=== PATIENT | female | born 1990 | race Caucasian/White ===

== ENCOUNTER → 2016-03-26 | Outpatient (CLI) | payer OTHER ==
[~2016-03-26] MED LIST: ACET50TA PO; BUPIVACAINE HCL 0.25% 30 ML VIAL As Ordered ONE; FISH500C PO; HEPA500020 IP; IBUP600T26 PO; IBUP80TA PO; ISOVUE-M 300 61% 15ML VIAL (Q9967) As Ordered ONE; LEVO137T2 PO; LIDOCAINE 1% SDV INJ 30 ML VIAL As Ordered ONE; LOVE1INJ SC; MOBI15TA PO; MULTCAP PO; PHEN15CA58 PO; ROBA750T4 PO; VITA500C24 PO; VITAPRTA PO; [UNRECOGNIZED DRUG - OTHER] PO; [UNRECOGNIZED DRUG - OTHER] PO; combination cream TOP; flexeril PO
--- NOTE | 2016-03-26 13:55 | REP ---
PARTIAL LUMBAR SPINE SERIES: Three views. HISTORY: Injection procedure facet block for pain. 25 seconds of fluoroscopy time is reported. FINDINGS: A sequence of three fluoroscopically obtained intraprocedural spot radiographs of the lumbar spine document various needle positions and contrast injections associated with lumbar facet injection procedure. Signed by Leighton Pearson MD 03/26/2016 07:27 P
--- NOTE | 2016-04-03 02:11 | ECWPNPC ---
PATIENT NAME: ERIN DESAI : 1990 GENDER: FEMALE VISIT DATE: 03/26/2016 DISCHARGE DATE: 03/26/16 1259 VISIT LOCKED DATE TIME: PHYSICIAN: CHANTAL PEARL RESOURCE: CHANTAL PEARL REASON FOR APPOINTMENT 1. LFBD HISTORY OF PRESENT ILLNESS HISTORY OF PRESENT ILLNESS: PAIN THE PATIENT DESCRIBES THE PAIN... FALL RISK SCREENING: SCREENING :ONE FALL WITH INJURY IN THE PAST YEAR CURRENT MEDICATIONS TAKING ASCORBIC ACID 500 MG TABLET CHEWABLE 1 TABLET ORALLY BID, NOTES: 03/26/16929 TAKING LEVOTHYROXINE SODIUM 200 MCG TABLET 1 TABLET INTRAVENOUS ONCE A DAY, NOTES: 03/26/16929 TAKING MULTIVITAMIN 1 TABLET CHEWABLE 1 TAB(S) ORALLY DAILY, NOTES: 03-26-16929 TAKING VITAMIN D (CHOLECALCIFEROL) 1000 UNIT TABLET 1 TABLET ORALLY ONCE A DAY, NOTES: 03-26-16929 TAKING MELATONIN 3 MG TABLET 1 TABLET AT BEDTIME NEEDED WITH FOOD ORALLY ONCE A DAY, NOTES: 03-25-162299 TAKING TIZANIDINE HCL 4 MG TABLET 1 TABLET NEEDED ORALLY BEFORE BEDTIME AND EVERY 6 HRS MDD2, NOTES: 03-25-162299 TAKING FISH OIL 1200 MG CAPSULE 1 CAPSULE ORALLY TWICE A DAY, NOTES: 03-26-16929 TAKING RIBOFLAVIN 25 MG TABLET 2 TABLETS ORALLY TWICE A DAY, NOTES: 03-26-16929 NOT-TAKING GABAPENTIN 100 MG CAPSULE 3 CAPSULE ORALLY BEFORE BEDTIME, NOTES: 01/04 12 MID NOT-TAKING NAPROXEN 375 MG TABLET 1 TABLET ORALLY DAILY NEEDED NOT-TAKING ACETAMINOPHEN 500 MG TABLET 1 TABLET NEEDED ORALLY EVERY 6 HRS NOT-TAKING COMBI RX 1 1 DOSE TOPICALLY EVERY 6 HOURS NEEDED NOT-TAKING IBUPROFEN 600 MG TABLET 1 TABLET ORALLY THREE TIMES A DAY NOT-TAKING METHOCARBAMOL 750 MG TABLET 1 TABLET ORALLY EVERY 4 HRS NOT-TAKING PHENTERMINE HCL 15 MG CAPSULE 1 CAPSULE ORALLY ONCE A DAY MEDICATION LIST REVIEWED AND RECONCILED WITH THE PATIENT PAST MEDICAL HISTORY HYPOTHYROID LOW BACK PAIN RIGHT HIP PAIN 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 NO . CHILLS NO . FEVER NO . INFECTION: DO YOU HAVE NEW INFECTIONS? NO . DO YOU HAVE HISTORY OF MRSA? NO . MUSCULOSKELETAL: ANY NEW PATTERNS OF PAIN OR NUMBNESS? NO . GASTROENTEROLOGY: ANY NEW CHANGE IN BOWEL CONTROL? NO . GENITOURINARY: ANY NEW CHANGE IN BLADDER CONTROL? NO . IS THERE A CHANCE YOU COULD BE ? NO . HEMATOLOGY/LYMPH: DO YOU TAKE ANY BLOOD THINNERS? (FOR EXAMPLE- COUMADIN, PLAVIX, AGGRENOX, PLATEL, PRADAXA, OR XARELTO) NO . WHEN WAS YOUR LAST DOSE? DATE: TIME: . NEUROLOGY: HAVE YOU FALLEN IN THE PAST 6 MONTHS? NO . ANY NEW EXTREMITY NUMBNESS OR WEAKNESS? NO . CARDIOLOGY: DO YOU HAVE A PACEMAKER OR DEFIBRILLATOR? NO . RESPIRATORY: HAVE YOU BEEN SICK IN THE PAST WEEK? NO . FEVER NO . FLU LIKE SYMPTOMS? NO . COUGH NO . INTEGUMENTARY: DO YOU HAVE ANY RASHES OR OPEN SORES? NO . ALLERGIC/IMMUNO: ARE YOU ALLERGIC TO SHELLFISH OR IV DYE? NO . ANY NEW ALLERGIES? NO . PSYCHIATRIC: DO YOU HAVE THOUGHTS OF HURTING YOURSELF OR SOMEONE ELSE? NO . ARE YOU ABUSED, NEGLECTED, OR IN AN UNSAFE ENVIRONMENT? NO . ENDOCRINOLOGY: ARE YOU DIABETIC? NO . OTHER: DO YOU NEED ANY PRESCRIPTIONS? NO . IF YES, PLEASE LIST: ____ . ANY NEW PROBLEMS WITH YOUR MEDICATIONS? NO . WHEN DID YOU LAST EAT? 2099 . WHEN DID YOU LAST DRINK? 0930 . WHAT DID YOU LAST DRINK? WATER . NAME OF PERSON DRIVING YOU HOME? GILBERT DESAI . DO YOU HAVE ANY OTHER QUESTIONS OR CONCERNS NO . REVIEWED BY: PROVIDER: . VITAL SIGNS WT 245 LBS, HT 69 IN, BMI 36.18 INDEX, BP 102/58 MM HG, HR 94 /MIN, RR 16 /MIN, TEMP 96.2 F, OXYGEN SAT % 96, NA INITIALS TL 1111. ASSESSMENTS SPONDYLOSIS WITHOUT MYELOPATHY OR RADICULOPATHY, LUMBAR REGION - M47.816 (PRIMARY) SPONDYLOSIS WITHOUT MYELOPATHY OR RADICULOPATHY, LUMBOSACRAL REGION - M47.817 PROCEDURES PN LUMBAR FACET BLOCK DIAGNOSTIC PRE PROCEDURE DIAGNOSIS LUMBAR SPONDYLOSIS, LUMBOSACRAL SPONDYLOSIS POST PROCEDURE DIAGNOSIS LUMBAR SPONDYLOSIS, LUMBOSACRAL SPONDYLOSIS PROCEDURE RIGHT L4-L5 AND RIGHT L5-S1 FACET BLOCK DIAGNOSTIC NUMBER [address] CHANTAL PEARL CARRY IN WORKER NONE ANESTHESIA LOCAL PRE PROCEDURE NOTE THE PATIENT WITH HISTORY OF CHRONIC LOW BACK PAIN. I EVALUATED THE PATIENT AND REVIEWED THE CHART. I WENT OVER THE RISKS, ALTERNATIVES, AND BENEFITS ASSOCIATED WITH THIS PROCEDURE. THE PATIENT WOULD LIKE TO PROCEED AND GAVE CONSENT TO PERFORM THE PROCEDURE. AGREED WITH THE PATIENT WE ARE DOING THIS PROCEDURE TO DETERMINE IF THE PATIENT IS A CANDIDATE FOR A RADIOFREQUENCY ABLATION OF THE FACETS JOINTS. THE PATIENT DENIES UNEXPLAINABLE WEIGHT LOSS, FEVER, CHILLS, OR NEW CHANGES IN URINARY OR BOWEL CONTROL DESCRIPTION OF PROCEDURE THE PATIENT WAS BROUGHT TO THE PROCEDURE ROOM AND PLACED IN THE PRONE POSITION. THE LUMBOSACRAL AREA WAS CLEANED WITH CHLORAPREP SOLUTION AND DRAPED ASEPTICALLY. THE PROCEDURE WAS DONE UNDER STERILE CONDITIONS. I CHECKED LATERALITY AND THE LEVEL WHERE THE PROCEDURE WAS GOING TO BE PERFORMED WITH THE PATIENT AND THE SUPPORTING STAFF AT THE MOMENT OF THE TIME OUT IN THE PROCEDURE ROOM. UNDER FLUOROSCOPIC GUIDANCE, TARGETS WERE SELECTED AT THE INTERSECTION OF THE RIGHT TRANSVERSE PROCESS OF L4, L5 AND ALA OF S1 WITH ITS RESPECTIVE SUPERIOR ARTICULAR PROCESS. LIDOCAINE WAS USED TO NUMB THE SKIN AND THE SUBCUTANEOUS TISSUE BELOW IT. SPINAL NEEDLE, 22-GAUGE WAS ADVANCED UNDER FLUOROSCOPIC GUIDANCE AND FOLLOWING PATIENT FEEDBACK UNTIL THE TARGETS WERE REACHED. POSITION OF THE NEEDLES WAS VERIFIED WITH AP AND LATERAL VIEWS. AFTER PROPER POSITION OF THE NEEDLES WAS ACHIEVED, ISOVUE-M DYE 30% 0.1 ML WAS INJECTED AT EACH SITE SHOWING ADEQUATE SPREAD OF THE DYE. THEN A SOLUTION OF 0.4 ML OF BUPIVACAINE 0.25% WAS INJECTED AT EACH SITE. THERE WAS NO EVIDENCE OF BLOOD, PARESTHESIA OR CEREBROSPINAL FLUID DURING THE PROCEDURE. THE PATIENT WAS SENT TO THE RECOVERY ROOM. THE PATIENT WAS MOVING THE EXTREMITIES AND DOING WELL. THERE WAS NO COMPLICATION DURING THE PROCEDURE. FLUOROSCOPY TIME WAS 25 SECONDS POST PROCEDURE NOTE THE PATIENT WILL DOCUMENT HIS PAIN LEVEL AND RESPONSE TO THIS PROCEDURE EVERY 30 MINUTES. THE PATIENT WILL BE SEEN IN A FOLLOW UP IN THE NEXT FEW WEEKS. FURTHER DETERMINATION FOR HIS CASE WILL BE DONE AT THE NEXT VISIT. INSTRUCTIONS WERE GIVEN, QUESTIONS WERE ANSWERED, AND THE PATIENT EXPRESSED UNDERSTANDING AND AGREED WITH THE PLAN. I, COLLIN MENDEZ, DOCUMENTED THE ABOVE INFORMATION ACTING A SCRIBE FOR DR. PEARL. I, DR. PEARL, HAVE REVIEWED THE ABOVE DOCUMENT, SCRIBED BY COLLIN MENDEZ, AND I VERIFY THAT IT IS ACCURATE DIAGNOSTIC IMAGING [facility] FACET BLOCK (PAIN)[id number] PROCEDURE CODES 22802 INJ PARAVERT F JNT L/S 1 LEV 52908 INJ PARAVERT F JNT L/S 2 LEV 6045F RADXPS IN END [id number] PXD FOLLOW UP 3 WEEKS ELECTRONICALLY SIGNED BY CHANTAL PEARL MD ON 04/02/2016 AT 02:26 PM EST DISCLAIMER : THIS IS A VISIT SUMMARY EXTRACTED FROM THE [employer] CHART. IT IS NOT A COPY OF THE [employer] PROGRESS NOTE. MTDD
== END ==
LOC: M PAIN 10:50
PROVIDERS: ATTEND Anesthesiology
DX: G89.29 Other chronic pain (principal); M47.816 Spondylosis without myelopathy or radiculopathy, lumbar region; M47.817 Spondylosis without myelopathy or radiculopathy, lumbosacral region; E03.9 Hypothyroidism, unspecified; Z87.820 Personal history of traumatic brain injury; H47.099 Other disorders of optic nerve, not elsewhere classified, unspecified eye; Z79.899 Other long term (current) drug therapy
CPT/HCPCS: 64493; 64494; Q9967

== ENCOUNTER → 2016-05-13 | Outpatient (CLI) | payer OTHER ==
[~2016-05-13] MED LIST changes: -BUPIVACAINE HCL 0.25% 30 ML VIAL As Ordered ONE; -ISOVUE-M 300 61% 15ML VIAL (Q9967) As Ordered ONE; -LIDOCAINE 1% SDV INJ 30 ML VIAL As Ordered ONE
--- NOTE | 2016-05-14 00:26 | ECWPNPC ---
PATIENT NAME: ERIN DESAI : 1990 GENDER: FEMALE VISIT DATE: 05/13/2016 DISCHARGE DATE: 05/13/16 1201 VISIT LOCKED DATE TIME: PHYSICIAN: REYNALDO PAREDES RESOURCE: REYNALDO PAREDES REASON FOR APPOINTMENT 1. POST FACET HISTORY OF PRESENT ILLNESS HISTORY OF PRESENT ILLNESS: HERE FOR POST PROC. F/U.HAD RIGHT DIAGNOSTIC FACET BLOCK #2 ON 03-26-16.PAIN DIARY IS REVIEWED AND SHOWING MARKED REDUCTION IN PAIN >75% FOR 4HRS THEN PAIN GRADUALLY RETURNED TO BASELINE ON DAY 3.PAIN VAS 7/10.LOCATED ACROSS LOW BACK WITH RADIATION INTO BILAT. LEGS R>L.AGGREVATED BY PROLONGED SITTING OR STANDING.RELIEVED SOMEWHAT WITH STRETCHING AND PILLOW POSITIONING.CURRENTLY USING TIZANIDINE AT NIGHT PRN FOR PAIN.TAKING GABAPENTIN 300MG AT HS. FALL RISK SCREENING: SCREENING :NO FALLS IN THE PAST YEAR CURRENT MEDICATIONS TAKING ASCORBIC ACID 500 MG TABLET CHEWABLE 1 TABLET ORALLY BID TAKING LEVOTHYROXINE SODIUM 200 MCG TABLET 1 TABLET INTRAVENOUS ONCE A DAY TAKING MULTIVITAMIN 1 TABLET CHEWABLE 1 TAB(S) ORALLY DAILY TAKING VITAMIN D (CHOLECALCIFEROL) 1000 UNIT TABLET 1 TABLET ORALLY ONCE A DAY TAKING MELATONIN 3 MG TABLET 1 TABLET AT BEDTIME NEEDED WITH FOOD ORALLY ONCE A DAY TAKING TIZANIDINE HCL 4 MG TABLET 1 TABLET NEEDED ORALLY BEFORE BEDTIME AND EVERY 6 HRS MDD2 TAKING FISH OIL 1200 MG CAPSULE 1 CAPSULE ORALLY TWICE A DAY TAKING RIBOFLAVIN 25 MG TABLET 2 TABLETS ORALLY TWICE A DAY TAKING GABAPENTIN 100 MG CAPSULE 3 CAPSULE ORALLY BEFORE BEDTIME NOT-TAKING NAPROXEN 375 MG TABLET 1 TABLET ORALLY DAILY NEEDED NOT-TAKING ACETAMINOPHEN 500 MG TABLET 1 TABLET NEEDED ORALLY EVERY 6 HRS NOT-TAKING COMBI RX 1 1 DOSE TOPICALLY EVERY 6 HOURS NEEDED NOT-TAKING IBUPROFEN 600 MG TABLET 1 TABLET ORALLY THREE TIMES A DAY NOT-TAKING METHOCARBAMOL 750 MG TABLET 1 TABLET ORALLY EVERY 4 HRS NOT-TAKING PHENTERMINE HCL 15 MG CAPSULE 1 CAPSULE ORALLY ONCE A DAY MEDICATION LIST REVIEWED AND RECONCILED WITH THE PATIENT PAST MEDICAL HISTORY HYPOTHYROID LOW BACK PAIN RIGHT HIP PAIN 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 NEW PATIENT PAIN DIARY TODAY'S VISITNOTES FROM 0-10, WHAT LEVEL IS YOUR PAIN TODAY?0 PAIN CLINIC PFS, CLERGY, PUBLIC HEALTH REFERRALS PFS REFERRAL NEEDED?NO CLERGY REFERRAL NEEDED?NO PUBLIC HEALTH REFERRAL NEEDED?NO WAS THE PROVIDER NOTIFIED OF ANY PERTINENT INFO?NO PFS REFERRAL NEEDED?NO CLERGY REFERRAL NEEDED?NO PUBLIC HEALTH REFERRAL NEEDED?NO WAS THE PROVIDER NOTIFIED OF ANY PERTINENT INFO?NO REVIEW OF SYSTEMS CONSTITUTIONAL: ANY CHANGE IN YOUR MEDICAL CONDITION? NO . CHILLS NO . FEVER NO . INFECTION: DO YOU HAVE NEW INFECTIONS? NO . DO YOU HAVE HISTORY OF MRSA? NO . MUSCULOSKELETAL: ANY NEW PATTERNS OF PAIN OR NUMBNESS? NO . GASTROENTEROLOGY: ANY NEW CHANGE IN BOWEL CONTROL? NO . GENITOURINARY: ANY NEW CHANGE IN BLADDER CONTROL? NO . IS THERE A CHANCE YOU COULD BE ? NO . HEMATOLOGY/LYMPH: DO YOU TAKE ANY BLOOD THINNERS? (FOR EXAMPLE- COUMADIN, PLAVIX, AGGRENOX, PLATEL, PRADAXA, OR XARELTO) NO . WHEN WAS YOUR LAST DOSE? DATE: TIME: . NEUROLOGY: HAVE YOU FALLEN IN THE PAST 6 MONTHS? NO . ANY NEW EXTREMITY NUMBNESS OR WEAKNESS? NO . CARDIOLOGY: DO YOU HAVE A PACEMAKER OR DEFIBRILLATOR? NO . RESPIRATORY: HAVE YOU BEEN SICK IN THE PAST WEEK? NO . FEVER NO . FLU LIKE SYMPTOMS? NO . COUGH NO . INTEGUMENTARY: DO YOU HAVE ANY RASHES OR OPEN SORES? NO . ALLERGIC/IMMUNO: ARE YOU ALLERGIC TO SHELLFISH OR IV DYE? NO . ANY NEW ALLERGIES? NO . PSYCHIATRIC: DO YOU HAVE THOUGHTS OF HURTING YOURSELF OR SOMEONE ELSE? NO . ARE YOU ABUSED, NEGLECTED, OR IN AN UNSAFE ENVIRONMENT? NO . ENDOCRINOLOGY: ARE YOU DIABETIC? NO . OTHER: DO YOU NEED ANY PRESCRIPTIONS? YES GABAPENTIN, TIZANIDINE . IF YES, PLEASE LIST: ____ . ANY NEW PROBLEMS WITH YOUR MEDICATIONS? NO . WHEN DID YOU LAST EAT? ____ . WHEN DID YOU LAST DRINK? ____ . WHAT DID YOU LAST DRINK? ____ . NAME OF PERSON DRIVING YOU HOME? ____ . DO YOU HAVE ANY OTHER QUESTIONS OR CONCERNS NO . REVIEWED BY: PROVIDER: REYNALDO SCHNEIDER . VITAL SIGNS WT 238.4 LBS, HT 69 IN, BMI 35.20 INDEX, BP 122/75 MM HG, HR 98 /MIN, RR 16 /MIN, TEMP 98.6 F, OXYGEN SAT % 95%, NA INITIALS SC 10:47. EXAMINATION LUMBAR SPINE/LOWER BACK: INSPECTION:NORMAL CURVATURE OF SPINE. PALPATION:HYPERSENSITIVE TO LIGHT TOUCH L/S SPINE AND PARASPINAL ., SEVERE. MOTOR SYSTEM:NORMAL BILATERAL LOWER EXTREMITIES, 5/5 BLE. SENSORY EXAM:NORMAL BILATERAL LE. REFLEXES:BILATERALLY SYMMETRICAL, BAB[place]KI NEGATIVE. GAIT:NORMAL. 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 TREATMENT RIGHT HIP PAIN REFILL TIZANIDINE HCL TABLET, 4 MG, 1 TABLET NEEDED, ORALLY, BEFORE BEDTIME AND EVERY 6 HRS MDD2, 30 DAY(S), 50, REFILLS 2 REFILL GABAPENTIN CAPSULE, 300 MG, 1, ORALLY, BEFORE BEDTIME, 30 DAY(S), 30, REFILLS 2 RF FACET LUMBAR REYNALDO GAN 05/13/2016 11:33:44 AM > RIGHT L4/5-L5/S1 RF PROCEDURE CODES FA211 ESTABILISHED PATIENT [facility] CHARGE DISPOSITION & COMMUNICATION FOLLOW UP 4 WEEKS POST (REASON: RF RIGHT L4/5-L5/S1) ELECTRONICALLY SIGNED BY WYATT HAQ ON 05/13/2016 AT 04:21 PM EST DISCLAIMER : THIS IS A VISIT SUMMARY EXTRACTED FROM THE [employer] CHART. IT IS NOT A COPY OF THE [employer] PROGRESS NOTE. CADEN
== END ==
LOC: M PAIN 10:20
PROVIDERS: ATTEND Nurse Practitioner Family
DX: Z09 Encounter for follow-up examination after completed treatment for conditions other than malignant neoplasm (principal); G89.29 Other chronic pain; M25.551 Pain in right hip; M51.16 Intervertebral disc disorders with radiculopathy, lumbar region; M51.17 Intervertebral disc disorders with radiculopathy, lumbosacral region; M47.816 Spondylosis without myelopathy or radiculopathy, lumbar region; M47.817 Spondylosis without myelopathy or radiculopathy, lumbosacral region; E03.9 Hypothyroidism, unspecified; Z79.899 Other long term (current) drug therapy; Z87.820 Personal history of traumatic brain injury

== ENCOUNTER → 2016-06-21 | Outpatient (CLI) | payer OTHER ==
[~2016-06-21] MED LIST changes: +BUPIVACAINE HCL 0.25% 30 ML VIAL As Ordered ONE; +ISOVUE-M 300 61% 15ML VIAL (Q9967) As Ordered ONE; +LIDOCAINE 1% SDV INJ 30 ML VIAL As Ordered ONE; +TRIAMCINOLONE ACETONIDE SUSP 40 MG/ML VIAL (J3301) As Ordered ONE; +diazePAM 5 MG TAB As Ordered ONE
--- NOTE | 2016-06-21 16:08 | REP ---
C-ARM VIEWS LUMBAR SPINE: CLINICAL HISTORY: Pain. Three C-ARM views are performed during injection by Dr. Parmar. [place] are seen in the lower lumbar region. 33 seconds of fluoroscopic time utilized. Signed by Satish Yost MD 06/22/2016 09:42 A
--- NOTE | 2016-06-27 23:42 | ECWPNPC ---
PATIENT NAME: ERIN DESAI : 1990 GENDER: FEMALE VISIT DATE: 06/21/2016 DISCHARGE DATE: 06/21/16 1308 VISIT LOCKED DATE TIME: PHYSICIAN: CHANTAL PEARL RESOURCE: CHANTAL PEARL REASON FOR APPOINTMENT 1. RF HISTORY OF PRESENT ILLNESS HISTORY OF PRESENT ILLNESS: PAIN THE PATIENT DESCRIBES THE PAIN... FALL RISK SCREENING: SCREENING :NO FALLS IN THE PAST YEAR CURRENT MEDICATIONS TAKING ASCORBIC ACID 500 MG TABLET CHEWABLE 1 TABLET ORALLY BID, NOTES: 06/21/16749 TAKING LEVOTHYROXINE SODIUM 200 MCG TABLET 1 TABLET INTRAVENOUS ONCE A DAY, NOTES: 06/21/16749 TAKING MULTIVITAMIN 1 TABLET CHEWABLE 1 TAB(S) ORALLY DAILY, NOTES: 06/20/162199 TAKING VITAMIN D (CHOLECALCIFEROL) 1000 UNIT TABLET 1 TABLET ORALLY ONCE A DAY, NOTES: 06/21/16749 TAKING MELATONIN 3 MG TABLET 1 TABLET AT BEDTIME NEEDED WITH FOOD ORALLY ONCE A DAY, NOTES: 06/20/162199 TAKING FISH OIL 1200 MG CAPSULE 1 CAPSULE ORALLY TWICE A DAY, NOTES: 06/21/16749 TAKING RIBOFLAVIN 25 MG TABLET 2 TABLETS ORALLY TWICE A DAY, NOTES: 06/21/16749 TAKING TIZANIDINE HCL 4 MG TABLET 1 TABLET NEEDED ORALLY BEFORE BEDTIME AND EVERY 6 HRS MDD2, NOTES: 06/20/162199 TAKING GABAPENTIN 300 MG CAPSULE 1 ORALLY BEFORE BEDTIME, NOTES: 06/20/162199 NOT-TAKING NAPROXEN 375 MG TABLET 1 TABLET ORALLY DAILY NEEDED NOT-TAKING ACETAMINOPHEN 500 MG TABLET 1 TABLET NEEDED ORALLY EVERY 6 HRS NOT-TAKING COMBI RX 1 1 DOSE TOPICALLY EVERY 6 HOURS NEEDED NOT-TAKING IBUPROFEN 600 MG TABLET 1 TABLET ORALLY THREE TIMES A DAY NOT-TAKING METHOCARBAMOL 750 MG TABLET 1 TABLET ORALLY EVERY 4 HRS NOT-TAKING PHENTERMINE HCL 15 MG CAPSULE 1 CAPSULE ORALLY ONCE A DAY MEDICATION LIST REVIEWED AND RECONCILED WITH THE PATIENT PAST MEDICAL HISTORY HYPOTHYROID LOW BACK PAIN RIGHT HIP PAIN 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 REVIEW OF SYSTEMS CONSTITUTIONAL: ANY CHANGE IN YOUR MEDICAL CONDITION? NO . CHILLS NO . FEVER NO . INFECTION: DO YOU HAVE NEW INFECTIONS? NO . DO YOU HAVE HISTORY OF MRSA? NO . MUSCULOSKELETAL: ANY NEW PATTERNS OF PAIN OR NUMBNESS? NO . GASTROENTEROLOGY: ANY NEW CHANGE IN BOWEL CONTROL? NO . GENITOURINARY: ANY NEW CHANGE IN BLADDER CONTROL? NO . IS THERE A CHANCE YOU COULD BE ? NO . HEMATOLOGY/LYMPH: DO YOU TAKE ANY BLOOD THINNERS? (FOR EXAMPLE- COUMADIN, PLAVIX, AGGRENOX, PLATEL, PRADAXA, OR XARELTO) NO . WHEN WAS YOUR LAST DOSE? DATE: TIME: . NEUROLOGY: HAVE YOU FALLEN IN THE PAST 6 MONTHS? NO . ANY NEW EXTREMITY NUMBNESS OR WEAKNESS? NO . CARDIOLOGY: DO YOU HAVE A PACEMAKER OR DEFIBRILLATOR? NO . RESPIRATORY: HAVE YOU BEEN SICK IN THE PAST WEEK? NO . FEVER NO . FLU LIKE SYMPTOMS? NO . COUGH NO . INTEGUMENTARY: DO YOU HAVE ANY RASHES OR OPEN SORES? NO . ALLERGIC/IMMUNO: ARE YOU ALLERGIC TO SHELLFISH OR IV DYE? NO . ANY NEW ALLERGIES? NO . PSYCHIATRIC: DO YOU HAVE THOUGHTS OF HURTING YOURSELF OR SOMEONE ELSE? NO . ARE YOU ABUSED, NEGLECTED, OR IN AN UNSAFE ENVIRONMENT? NO . ENDOCRINOLOGY: ARE YOU DIABETIC? NO . OTHER: DO YOU NEED ANY PRESCRIPTIONS? NO . IF YES, PLEASE LIST: ____ . ANY NEW PROBLEMS WITH YOUR MEDICATIONS? NO . WHEN DID YOU LAST EAT? ____06/20/16 1930 . WHEN DID YOU LAST DRINK? ____06/21/16 1000 . WHAT DID YOU LAST DRINK? ___H2O . NAME OF PERSON DRIVING YOU HOME? ____MOM- BRAULIO SOSA . DO YOU HAVE ANY OTHER QUESTIONS OR CONCERNS NO . REVIEWED BY: PROVIDER: . VITAL SIGNS WT 229.0 LBS, HT 69 IN, BMI 33.81 INDEX, BP 118/64 MM HG, HR 98 /MIN, RR 16 /MIN, TEMP 97.6 F, OXYGEN SAT % 96%, NA INITIALS TL 1059, REVIEWED BY: AD. ASSESSMENTS SPONDYLOSIS WITHOUT MYELOPATHY OR RADICULOPATHY, LUMBAR REGION - M47.816 (PRIMARY) SPONDYLOSIS WITHOUT MYELOPATHY OR RADICULOPATHY, LUMBOSACRAL REGION - M47.817 PROCEDURES PN RADIOFREQUENCY PRE PROCEDURE DIAGNOSES 1. LUMBAR SPONDYLOSIS. 2. LUMBOSACRAL SPONDYLOSIS POST PROCEDURE DIAGNOSES 1. LUMBAR SPONDYLOSIS. 2. LUMBOSACRAL SPONDYLOSIS PROCEDURE RIGHT L4-L5 AND RIGHT L5-S1 FACET RADIOFREQUENCY SURGEON DR. CHANTAL PEARL YEAST CULTURE DEVELOPER NONE ANESTHESIA LOCAL PRE PROCEDURE REPORT THE PATIENT HAS HISTORY OF CHRONIC LOW BACK PAIN. I EVALUATE THE PATIENT AND REVIEWED THE CHART. I WENT OVER THE RISKS, ALTERNATIVES, AND BENEFITS ASSOCIATED WITH THIS PROCEDURE. THE PATIENT WOULD LIKE TO PROCEED AND GIVE CONSENT TO PERFORMED THE PROCEDURE. THE PATIENT DENIES UNEXPLAINABLE WEIGHT LOSS, FEVER, CHILLS, OR NEW CHANGES IN URINARY OR BOWEL CONTROL DESCRIPTION OF PROCEDURE THE PATIENT WAS BROUGHT TO THE PROCEDURE ROOM AND PLACED IN THE PRONE POSITION. THE LUMBOSACRAL AREA WAS CLEANED WITH CHLORAPREP SOLUTION AND DRAPED ASEPTICALLY. THE PROCEDURE WAS DONE UNDER STERILE CONDITIONS. I CHECKED LATERALITY AND THE LEVEL WHERE THE PROCEDURE WAS GOING TO BE PERFORMED WITH THE PATIENT AND THE SUPPORTING STAFF AT THE MOMENT OF THE TIME OUT IN THE PROCEDURE ROOM. UNDER FLUOROSCOPIC GUIDANCE, TARGETS WERE SELECTED AT THE INTERSECTION OF THE RIGHT TRANSVERSE PROCESS OF L4, L5 AND ALA OF S1 WITH ITS RESPECTIVE SUPERIOR ARTICULAR PROCESS. LIDOCAINE WAS USED TO NUMB THE SKIN AND THE SUBCUTANEOUS TISSUE BELOW IT. RADIOFREQUENCY NEEDLES 22-GAUGE 15 CM LONG WITH 10 MM ACTIVE CURVE TIP WERE ADVANCED UNDER FLUOROSCOPIC GUIDANCE AND FOLLOWING PATIENT FEEDBACK UNTIL THE TARGET AREA WAS REACHED. POSITION OF THE NEEDLES WAS VERIFIED WITH AP AND LATERAL VIEWS. AFTER PROPER POSITION OF THE NEEDLE WAS ACHIEVED, WE WORKED WITH THE RIGHT SELECTED MEDIAN BRANCHES OF L3, L4 AND THE DORSAL RAMI OF L5. WE MEASURED THE CORRESPONDING IMPEDANCES, SENSORY STIMULATION AND MOTOR RESPONSES INDICATED IN THE RADIOFREQUENCY WORKSHEET. POSITION OF THE NEEDLES WAS VERIFIED AGAIN WITH AP AND LATERAL VIEWS. LIDOCAINE 1%, 2 ML, WAS INJECTED AT EACH LEVEL. RADIOFREQUENCY WAS DONE AT EACH LEVEL AT 80 DEGREES FOR 90 SECONDS. AFTER RADIOFREQUENCY WAS DONE, THE PATIENT RECEIVED BUPIVACAINE 0.125% 1 CC WITH KENALOG 5 MG AT EACH SITE. THERE WAS NO EVIDENCE OF BLOOD, PARESTHESIA OR CEREBROSPINAL FLUID DURING THE PROCEDURE. THE PATIENT WAS SENT TO THE RECOVERY ROOM. THE PATIENT WAS MOVING THE EXTREMITIES AND DOING WELL. THERE WAS NO COMPLICATION DURING THE PROCEDURE. FLUOROSCOPY TIME WAS 33 SECONDS POST PROCEDURE NOTE THE PATIENT WILL BE SEEN IN A FOLLOW UP IN THE NEXT FEW WEEKS. INSTRUCTIONS WERE GIVEN, QUESTIONS WERE ANSWERED, AND THE PATIENT EXPRESSED UNDERSTANDING AND AGREES WITH THE PLAN. I, CHAYO SAM, DOCUMENTED THE ABOVE INFORMATION ACTING A SCRIBE FOR DR. PEARL. I HAVE REVIEWED THE ABOVE DOCUMENT, WRITTEN BY CHAYO SAM SCRIBE AND I VERIFY THAT IT IS ACCURATE. DIAGNOSTIC IMAGING [facility] FACET BLOCK (PAIN)[id number] PROCEDURE CODES 72962 DESTROY LUMB/SAC FACET JNT 62938 DESTROY L/S FACET JNT ADDL 6045F RADXPS IN END [id number] PXD DISPOSITION & COMMUNICATION FOLLOW UP 3 WEEKS ELECTRONICALLY SIGNED BY CHANTAL PEARL MD ON 06/27/2016 AT 09:27 PM EDT DISCLAIMER : THIS IS A VISIT SUMMARY EXTRACTED FROM THE [facility] [employer] CHART. IT IS NOT A COPY OF THE [employer] PROGRESS NOTE. MTDD
== END ==
LOC: M PAIN 11:00
PROVIDERS: ATTEND Anesthesiology
DX: G89.29 Other chronic pain (principal); M47.816 Spondylosis without myelopathy or radiculopathy, lumbar region; M47.817 Spondylosis without myelopathy or radiculopathy, lumbosacral region; Z79.899 Other long term (current) drug therapy
CPT/HCPCS: 64635; 64636; J3301; Q9967

== ENCOUNTER → 2016-06-30 | Outpatient (CLI) | payer OTHER ==
[~2016-06-30] MED LIST changes: -BUPIVACAINE HCL 0.25% 30 ML VIAL As Ordered ONE; -ISOVUE-M 300 61% 15ML VIAL (Q9967) As Ordered ONE; -LIDOCAINE 1% SDV INJ 30 ML VIAL As Ordered ONE; -TRIAMCINOLONE ACETONIDE SUSP 40 MG/ML VIAL (J3301) As Ordered ONE; -diazePAM 5 MG TAB As Ordered ONE
--- NOTE | 2016-07-09 00:04 | ECWPNPC ---
PATIENT NAME: ERIN DESAI : 1990 GENDER: FEMALE VISIT DATE: 06/30/2016 DISCHARGE DATE: 06/30/16 1548 VISIT LOCKED DATE TIME: PHYSICIAN: REYNALDO PAREDES RESOURCE: REYNALDO PAREDES REASON FOR APPOINTMENT 1. POST RF HISTORY OF PRESENT ILLNESS GENERAL: HERE FOR POST PROCEDURE F/U.HAD RIGHT L4/5-L5/S1 RADIOFREQUENCY ON 06-21-2016.REPORTING SOME IN RIGHT LOW BACK PAIN.RATING PAIN VAS 6/10.DISCUSSED NORMAL COURSE OF RADIOFREQUENCY.SHE IS ONLY ONE WEEK POST PROCEDURE.FEELSHER PAIN IS MORE LOCATED RIGHT HIP. CURRENT MEDICATIONS TAKING ASCORBIC ACID 500 MG TABLET CHEWABLE 1 TABLET ORALLY BID TAKING LEVOTHYROXINE SODIUM 200 MCG TABLET 1 TABLET INTRAVENOUS ONCE A DAY TAKING MULTIVITAMIN 1 TABLET CHEWABLE 1 TAB(S) ORALLY DAILY TAKING VITAMIN D (CHOLECALCIFEROL) 1000 UNIT TABLET 1 TABLET ORALLY ONCE A DAY TAKING MELATONIN 3 MG TABLET 1 TABLET AT BEDTIME NEEDED WITH FOOD ORALLY ONCE A DAY TAKING FISH OIL 1200 MG CAPSULE 1 CAPSULE ORALLY TWICE A DAY TAKING RIBOFLAVIN 25 MG TABLET 2 TABLETS ORALLY TWICE A DAY TAKING TIZANIDINE HCL 4 MG TABLET 1 TABLET NEEDED ORALLY BEFORE BEDTIME AND EVERY 6 HRS MDD2 TAKING GABAPENTIN 300 MG CAPSULE 1 ORALLY BEFORE BEDTIME NOT-TAKING NAPROXEN 375 MG TABLET 1 TABLET ORALLY DAILY NEEDED NOT-TAKING ACETAMINOPHEN 500 MG TABLET 1 TABLET NEEDED ORALLY EVERY 6 HRS NOT-TAKING COMBI RX 1 1 DOSE TOPICALLY EVERY 6 HOURS NEEDED NOT-TAKING IBUPROFEN 600 MG TABLET 1 TABLET ORALLY THREE TIMES A DAY NOT-TAKING METHOCARBAMOL 750 MG TABLET 1 TABLET ORALLY EVERY 4 HRS NOT-TAKING PHENTERMINE HCL 15 MG CAPSULE 1 CAPSULE ORALLY ONCE A DAY MEDICATION LIST REVIEWED AND RECONCILED WITH THE PATIENT PAST MEDICAL HISTORY HYPOTHYROID LOW BACK PAIN RIGHT HIP PAIN TBI WITH OPTIC NERVE INJURY AND WHIPLASH ALLERGIES NONE SURGICAL HISTORY HERNIA REPAIR 1992 LEFT KNEE ACL/MANISCUS REPAIR 2006 WISDOM TEETH REMOVED 2008 HOSPITALIZATION/MAJOR DIAGNOSTIC PROCEDURE PULMONARY EMBOLISM BILATERAL LUNGS POST KNEE REPAIR 2006 OF DAUGHTER 2014 VITAL SIGNS WT 229 LBS, HT 69 IN, BMI 33.81 INDEX, BP 119/73 MM HG, HR 66 /MIN, RR 16 /MIN, TEMP 98.3 F, OXYGEN SAT % 94, NA INITIALS AW 1517. EXAMINATION LUMBAR SPINE/LOWER BACK: INSPECTION:NORMAL CURVATURE OF SPINE. PALPATION:HYPERSENSITIVE TO LIGHT TOUCH L/S SPINE AND PARASPINAL ., SEVERE. MOTOR SYSTEM:NORMAL BILATERAL LOWER EXTREMITIES, 5/5 BLE. SENSORY EXAM:NORMAL BILATERAL LE. REFLEXES:BILATERALLY SYMMETRICAL, BABINS[place] NEGATIVE. GAIT:NORMAL. 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 PROCEDURE CODES FA211 ESTABILISHED PATIENT [facility] CHARGE DISPOSITION & COMMUNICATION FOLLOW UP 4 WEEKS ELECTRONICALLY SIGNED BY WYATT HAQ ON 07/08/2016 AT 06:32 PM EDT DISCLAIMER : THIS IS A VISIT SUMMARY EXTRACTED FROM THE [employer] CHART. IT IS NOT A COPY OF THE [employer] PROGRESS NOTE. CADEN
== END ==
LOC: M PAIN 14:20
PROVIDERS: ATTEND Nurse Practitioner Family
DX: M25.551 Pain in right hip (principal); M54.41 Lumbago with sciatica, right side; Z79.899 Other long term (current) drug therapy; E03.9 Hypothyroidism, unspecified

== ENCOUNTER → 2016-07-29 | Outpatient (CLI) | payer OTHER ==
--- NOTE | 2016-07-30 00:43 | ECWPNPC ---
PATIENT NAME: ERIN DESAI : 1990 GENDER: FEMALE VISIT DATE: 07/29/2016 DISCHARGE DATE: 07/29/16 1046 VISIT LOCKED DATE TIME: PHYSICIAN: REYNALDO PAREDES RESOURCE: REYNALDO PAREDES REASON FOR APPOINTMENT 1. FOLLOWUP HISTORY OF PRESENT ILLNESS HISTORY OF PRESENT ILLNESS: PAIN THE PATIENT DESCRIBES THE PAIN... FALL RISK SCREENING: SCREENING :NO FALLS IN THE PAST YEAR GENERAL: HERE FOR F/U.HAD RIGHT L4/5-L5/S1 RADIOFREQUENCY ON 06-21-2016.REPORTING IMPROVEMENT IN RIGHT LOW BACK PAIN.REORTING IMPROVED ACTIVITY TOLERANCE.RATING PAIN VAS 6/10.DISCUSSED NORMAL COURSE OF RADIOFREQUENCY.SHE IS 4 WEEKS POST PROCEDURE. CURRENT MEDICATIONS TAKING ASCORBIC ACID 500 MG TABLET CHEWABLE 1 TABLET ORALLY BID TAKING LEVOTHYROXINE SODIUM 200 MCG TABLET 1 TABLET INTRAVENOUS ONCE A DAY TAKING MULTIVITAMIN 1 TABLET CHEWABLE 1 TAB(S) ORALLY DAILY TAKING VITAMIN D (CHOLECALCIFEROL) 1000 UNIT TABLET 1 TABLET ORALLY ONCE A DAY TAKING MELATONIN 3 MG TABLET 1 TABLET AT BEDTIME NEEDED WITH FOOD ORALLY ONCE A DAY TAKING FISH OIL 1200 MG CAPSULE 1 CAPSULE ORALLY TWICE A DAY TAKING RIBOFLAVIN 25 MG TABLET 2 TABLETS ORALLY TWICE A DAY TAKING TIZANIDINE HCL 4 MG TABLET 1 TABLET NEEDED ORALLY BEFORE BEDTIME AND EVERY 6 HRS MDD2 TAKING GABAPENTIN 300 MG CAPSULE 1 ORALLY BEFORE BEDTIME NOT-TAKING NAPROXEN 375 MG TABLET 1 TABLET ORALLY DAILY NEEDED NOT-TAKING ACETAMINOPHEN 500 MG TABLET 1 TABLET NEEDED ORALLY EVERY 6 HRS NOT-TAKING COMBI RX 1 1 DOSE TOPICALLY EVERY 6 HOURS NEEDED NOT-TAKING IBUPROFEN 600 MG TABLET 1 TABLET ORALLY THREE TIMES A DAY NOT-TAKING METHOCARBAMOL 750 MG TABLET 1 TABLET ORALLY EVERY 4 HRS NOT-TAKING PHENTERMINE HCL 15 MG CAPSULE 1 CAPSULE ORALLY ONCE A DAY MEDICATION LIST REVIEWED AND RECONCILED WITH THE PATIENT PAST MEDICAL HISTORY HYPOTHYROID LOW BACK PAIN RIGHT HIP PAIN TBI WITH OPTIC NERVE INJURY AND WHIPLASH ALLERGIES NONE REVIEW OF SYSTEMS CONSTITUTIONAL: ANY CHANGE IN YOUR MEDICAL CONDITION? NO . CHILLS NO . FEVER NO . INFECTION: DO YOU HAVE NEW INFECTIONS? NO . DO YOU HAVE HISTORY OF MRSA? NO . MUSCULOSKELETAL: ANY NEW PATTERNS OF PAIN OR NUMBNESS? NO . GASTROENTEROLOGY: ANY NEW CHANGE IN BOWEL CONTROL? NO . GENITOURINARY: ANY NEW CHANGE IN BLADDER CONTROL? NO . IS THERE A CHANCE YOU COULD BE ? NO . HEMATOLOGY/LYMPH: DO YOU TAKE ANY BLOOD THINNERS? (FOR EXAMPLE- COUMADIN, PLAVIX, AGGRENOX, PLATEL, PRADAXA, OR XARELTO) NO . WHEN WAS YOUR LAST DOSE? DATE: TIME: . NEUROLOGY: HAVE YOU FALLEN IN THE PAST 6 MONTHS? NO . ANY NEW EXTREMITY NUMBNESS OR WEAKNESS? NO . CARDIOLOGY: DO YOU HAVE A PACEMAKER OR DEFIBRILLATOR? NO . RESPIRATORY: HAVE YOU BEEN SICK IN THE PAST WEEK? NO . FEVER NO . FLU LIKE SYMPTOMS? NO . COUGH NO . INTEGUMENTARY: DO YOU HAVE ANY RASHES OR OPEN SORES? NO . ALLERGIC/IMMUNO: ARE YOU ALLERGIC TO SHELLFISH OR IV DYE? NO . ANY NEW ALLERGIES? NO . PSYCHIATRIC: DO YOU HAVE THOUGHTS OF HURTING YOURSELF OR SOMEONE ELSE? NO . ARE YOU ABUSED, NEGLECTED, OR IN AN UNSAFE ENVIRONMENT? NO . ENDOCRINOLOGY: ARE YOU DIABETIC? NO . OTHER: DO YOU NEED ANY PRESCRIPTIONS? NO . IF YES, PLEASE LIST: ____ . ANY NEW PROBLEMS WITH YOUR MEDICATIONS? NO . WHEN DID YOU LAST EAT? ____ . WHEN DID YOU LAST DRINK? ____ . WHAT DID YOU LAST DRINK? ____ . NAME OF PERSON DRIVING YOU HOME? ____ . DO YOU HAVE ANY OTHER QUESTIONS OR CONCERNS NO . REVIEWED BY: PROVIDER: REYNALOD SCHNEIDER . VITAL SIGNS WT 230 LBS, HT 69 IN, BMI 33.96 INDEX, BP 122/68 MM HG, HR 107 /MIN, RR 16 /MIN, TEMP 97.4 F, OXYGEN SAT % 97%, NA INITIALS SC 10:06, REVIEWED BY: ELLYN. EXAMINATION GENERAL EXAMINATION: GENERAL APPEARANCE:COMFORTABLE. PSYCHAFFECT NORMAL. LUNGS:LUNG RAHMAN ARE CLEAR TO AUSCULTATION BILATERALLY. GOOD MOVEMENT OF AIR. HEART:S1, S2 IN A REGULAR RATE AND RHYTHM. NO SIGNIFICANT MURMURS, RUBS OR GALLOPS NOTED. LUMBAR SPINE/LOWER BACK: LOWER BACK:THERE IS TENDERNESS AT LOWER BACK AND THE PARA SPINAL MUSCLE GROUP. MOTOR SYSTEM:5/5 BLE. SENSORY EXAM:NORMAL BILATERAL LE. REFLEXES:2/4 AND SYMMETRIC BLE. 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 THEY WERE ADVISED THAT THIS WILL IMPROVE WEIGHT LOSS AND ALSO DEPRESSION/FIBROMYALGIA SYMPTOMS. ADVISED TO WALK 10 MINUTES EVERY OTHER DAY ON A FLAT SURFACE. EMPHASIZED THE IMPORTANCE OF DOING THIS CONSISTANTLY AND NOT SPORATICALLY TO AVOID INJURY. STRONG ADVISED NOT TO DO MORE THAN 10 MINUTES EVERY OTHER DSY FOR THE FIRST 4 WEEKS. PROCEDURE CODES FA211 ESTABILISHED PATIENT [facility] CHARGE DISPOSITION & COMMUNICATION FOLLOW UP 2 MONTHS ELECTRONICALLY SIGNED BY WYATT HAQ ON 07/29/2016 AT 02:06 PM EDT DISCLAIMER : THIS IS A VISIT SUMMARY EXTRACTED FROM THE [employer] CHART. IT IS NOT A COPY OF THE [employer] PROGRESS NOTE. CADEN
== END ==
LOC: M PAIN 10:00
PROVIDERS: ATTEND Nurse Practitioner Family
DX: G89.29 Other chronic pain (principal); M25.551 Pain in right hip; M54.41 Lumbago with sciatica, right side; E03.9 Hypothyroidism, unspecified; Z79.899 Other long term (current) drug therapy; Z87.820 Personal history of traumatic brain injury

== ENCOUNTER → 2016-09-28 | Outpatient (CLI) | payer OTHER ==
[~2016-09-28] MED LIST changes: +ACET50TAOT PO; +ELIQ5TAB PO; +FISH1000 PO; +GABA-282; +GABA-282 PO; +IBUP-1022 PO; -IBUP600T26 PO; +IBUPOTC PO; +LEVO200T31 PO; +MELA3TAB49 PO; +MELA5TAB21 PO; +NORCOTAB PO; +PANT40TA2; +PANT40TA2 PO; +PHEN15CA PO; -PHEN15CA58 PO; +POTA99TA PO; +TIZA4CAP3 PO; +TYLE325T5 PO; +VITA100T98 PO; +VITMTA PO
--- NOTE | 2016-10-14 01:14 | ECWPNPC ---
PATIENT NAME: ERIN DESAI : 1990 GENDER: FEMALE VISIT DATE: 09/28/2016 DISCHARGE DATE: 09/28/16 1119 VISIT LOCKED DATE TIME: PHYSICIAN: REYNALDO PAREDES RESOURCE: REYNALDO PAREDES REASON FOR APPOINTMENT 1. LOW BACK/R HIP HISTORY OF PRESENT ILLNESS HISTORY OF PRESENT ILLNESS: PAIN THE PATIENT DESCRIBES THE PAIN... FALL RISK SCREENING: SCREENING :NO FALLS IN THE PAST YEAR GENERAL: HERE FOR F/U.HAD RIGHT L4/5-L5/S1 RADIOFREQUENCY ON 06-21-2016.REPORTING NO IMPROVEMENT IN RIGHT LOW BACK PAIN SINCE PROCEDURE.RATING PAIN VAS 7/10.PAIN IS ACROSS LOW BACK AND RADIATES INTO BOTH LEGS.CHIEF AREA OF PAIN IS RIGHT HIP.HAS RESPONDED WELL TO TROCHANTERIC BURSAL INJECTION. CURRENT MEDICATIONS TAKING LEVOTHYROXINE SODIUM 200 MCG TABLET 1 TABLET INTRAVENOUS ONCE A DAY TAKING MULTIVITAMIN 1 TABLET CHEWABLE 1 TAB(S) ORALLY DAILY TAKING VITAMIN D (CHOLECALCIFEROL) 1000 UNIT TABLET 1 TABLET ORALLY ONCE A DAY TAKING MELATONIN 3 MG TABLET 1 TABLET AT BEDTIME NEEDED WITH FOOD ORALLY ONCE A DAY TAKING FISH OIL 1200 MG CAPSULE 1 CAPSULE ORALLY TWICE A DAY TAKING RIBOFLAVIN 25 MG TABLET 2 TABLETS ORALLY TWICE A DAY TAKING TIZANIDINE HCL 4 MG TABLET 1 TABLET NEEDED ORALLY BEFORE BEDTIME AND EVERY 6 HRS MDD2 TAKING GABAPENTIN 300 MG CAPSULE 1 ORALLY BEFORE BEDTIME TAKING PROTONIX 40 MG TABLET DELAYED RELEASE 1 TABLET ORALLY ONCE A DAY TAKING TRAMADOL HCL 50 MG TABLET 1 TAB ORALLY EVERY 6 HOURS NEEDED/MMD#4 TAKING POTASSIUM CHLORIDE 10 MEQ CAPSULE EXTENDED RELEASE 1 CAPSULE WITH FOOD ORALLY TWICE A DAY NOT-TAKING ASCORBIC ACID 500 MG TABLET CHEWABLE 1 TABLET ORALLY BID NOT-TAKING NAPROXEN 375 MG TABLET 1 TABLET ORALLY DAILY NEEDED NOT-TAKING ACETAMINOPHEN 500 MG TABLET 1 TABLET NEEDED ORALLY EVERY 6 HRS NOT-TAKING COMBI RX 1 1 DOSE TOPICALLY EVERY 6 HOURS NEEDED NOT-TAKING IBUPROFEN 600 MG TABLET 1 TABLET ORALLY THREE TIMES A DAY NOT-TAKING METHOCARBAMOL 750 MG TABLET 1 TABLET ORALLY EVERY 4 HRS NOT-TAKING PHENTERMINE HCL 15 MG CAPSULE 1 CAPSULE ORALLY ONCE A DAY MEDICATION LIST REVIEWED AND RECONCILED WITH THE PATIENT PAST MEDICAL HISTORY HYPOTHYROID LOW BACK PAIN RIGHT HIP PAIN TBI WITH OPTIC NERVE INJURY AND WHIPLASH ALLERGIES NONE SURGICAL HISTORY HERNIA REPAIR 1991 LEFT KNEE ACL/MANISCUS REPAIR 2007 WISDOM TEETH REMOVED 2009 HOSPITALIZATION/MAJOR DIAGNOSTIC PROCEDURE PULMONARY EMBOLISM BILATERAL LUNGS POST KNEE REPAIR 2007 OF DAUGHTER 2015 REVIEW OF SYSTEMS REVIEWED BY: PROVIDER: REYNALDO SCHNEIDER . CONSTITUTIONAL: ANY CHANGE IN YOUR MEDICAL CONDITION? NO . CHILLS NO . FEVER NO . INFECTION: DO YOU HAVE NEW INFECTIONS? NO . DO YOU HAVE HISTORY OF MRSA? NO . MUSCULOSKELETAL: ANY NEW PATTERNS OF PAIN OR NUMBNESS? NO . GASTROENTEROLOGY: ANY NEW CHANGE IN BOWEL CONTROL? NO . GENITOURINARY: ANY NEW CHANGE IN BLADDER CONTROL? NO . IS THERE A CHANCE YOU COULD BE ? NO . HEMATOLOGY/LYMPH: DO YOU TAKE ANY BLOOD THINNERS? (FOR EXAMPLE- COUMADIN, PLAVIX, AGGRENOX, PLATEL, PRADAXA, OR XARELTO) NO . WHEN WAS YOUR LAST DOSE? DATE: TIME: . NEUROLOGY: HAVE YOU FALLEN IN THE PAST 6 MONTHS? NO . ANY NEW EXTREMITY NUMBNESS OR WEAKNESS? NO . CARDIOLOGY: DO YOU HAVE A PACEMAKER OR DEFIBRILLATOR? NO . RESPIRATORY: HAVE YOU BEEN SICK IN THE PAST WEEK? NO . FEVER NO . FLU LIKE SYMPTOMS? NO . COUGH NO . INTEGUMENTARY: DO YOU HAVE ANY RASHES OR OPEN SORES? NO . ALLERGIC/IMMUNO: ARE YOU ALLERGIC TO SHELLFISH OR IV DYE? NO . ANY NEW ALLERGIES? NO . PSYCHIATRIC: DO YOU HAVE THOUGHTS OF HURTING YOURSELF OR SOMEONE ELSE? NO . ARE YOU ABUSED, NEGLECTED, OR IN AN UNSAFE ENVIRONMENT? NO . ENDOCRINOLOGY: ARE YOU DIABETIC? NO . OTHER: DO YOU NEED ANY PRESCRIPTIONS? YES, GABAPENTIN, TIZANIDINE . IF YES, PLEASE LIST: ____ . ANY NEW PROBLEMS WITH YOUR MEDICATIONS? NO . WHEN DID YOU LAST EAT? ____ . WHEN DID YOU LAST DRINK? ____ . WHAT DID YOU LAST DRINK? ____ . NAME OF PERSON DRIVING YOU HOME? ____ . DO YOU HAVE ANY OTHER QUESTIONS OR CONCERNS NO . VITAL SIGNS WT 248.4 LBS, HT 69 IN, BMI 36.68 INDEX, BP 131/67 MM HG, HR 81 /MIN, RR 16 /MIN, TEMP 98.2 F, OXYGEN SAT % 98%, SAFE IN ENV? (Y/N) Y, NA INITIALS MO 10:53, REVIEWED BY: EM. EXAMINATION GENERAL EXAMINATION: GENERAL APPEARANCE:COMFORTABLE. PSYCHAFFECT NORMAL. LUNGS:LUNG RAHMAN ARE CLEAR TO AUSCULTATION BILATERALLY. GOOD MOVEMENT OF AIR. HEART:S1, S2 IN A REGULAR RATE AND RHYTHM. NO SIGNIFICANT MURMURS, RUBS OR GALLOPS NOTED. LUMBAR SPINE/LOWER BACK: LOWER BACK:THERE IS TENDERNESS AT LOWER BACK AND THE PARA SPINAL MUSCLE GROUP.TENDERNESS WITH PALPATION OVER RIGHT HIP.. MOTOR SYSTEM:5/5 BLE. SENSORY EXAM:NORMAL BILATERAL LE. REFLEXES:2/4 AND SYMMETRIC BLE. 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 PROCEDURE CODES FA211 ESTABILISHED PATIENT [facility] CHARGE DISPOSITION & COMMUNICATION FOLLOW UP 2WK POST (REASON: RIGHT TROCHANTERIC BURSAL STEROID INJECTION) ELECTRONICALLY SIGNED BY WYATT HAQ ON 10/13/2016 AT 09:31 AM EDT DISCLAIMER : THIS IS A VISIT SUMMARY EXTRACTED FROM THE [employer] CHART. IT IS NOT A COPY OF THE [employer] PROGRESS NOTE. CADEN
== END ==
LOC: M PAIN 10:00
PROVIDERS: ATTEND Nurse Practitioner Family
DX: M25.551 Pain in right hip (principal); M54.41 Lumbago with sciatica, right side; G89.29 Other chronic pain; Z79.891 Long term (current) use of opiate analgesic; Z79.899 Other long term (current) drug therapy; E03.9 Hypothyroidism, unspecified

== ENCOUNTER → 2016-10-21 | Outpatient (CLI) | payer OTHER ==
[~2016-10-21] MED LIST changes: +BUPIVACAINE HCL 0.25% 30 ML VIAL As Ordered ONE; +ISOVUE-M 300 61% 15ML VIAL (Q9967) As Ordered ONE; +LIDOCAINE 1% SDV INJ 30 ML VIAL As Ordered ONE; +TRIAMCINOLONE ACETONIDE SUSP 40 MG/ML VIAL (J3301) As Ordered ONE; +diazePAM 5 MG TAB As Ordered ONE; +oxyCODONE 5MG TAB As Ordered ONE
--- NOTE | 2016-10-21 17:49 | REP ---
FLUOROSCOPIC GUIDANCE: The images were reviewed with Dr. Michael. The patient has a history of right hip pain. The portable C-Arm was provided in the OR for Dr. Parmar for fluoroscopic guidance. Seven intraoperative fluoroscopic spot films were obtained using last image hold technology for needle placement verification for right trochanteric bursa injection. The films are on the PACs system and are available for review. 20 seconds of fluoroscopy time was utilized for this procedure. Reviewed by HELENE Chavez 10/22/2016 03:25 PEdited and Signed by Kris Michael MD 10/22/2016 10:08 P
--- NOTE | 2016-11-08 00:20 | ECWPNPC ---
PATIENT NAME: ERIN DESAI : 1990 GENDER: FEMALE VISIT DATE: 10/21/2016 DISCHARGE DATE: 10/21/16 1122 VISIT LOCKED DATE TIME: PHYSICIAN: CHANTAL PEARL RESOURCE: CHANTAL PEARL REASON FOR APPOINTMENT 1. RT. TROCHANTERIC BURSA HISTORY OF PRESENT ILLNESS HISTORY OF PRESENT ILLNESS: PAIN THE PATIENT DESCRIBES THE PAIN... FALL RISK SCREENING: SCREENING :NO FALLS IN THE PAST YEAR CURRENT MEDICATIONS TAKING LEVOTHYROXINE SODIUM 200 MCG TABLET 1 TABLET INTRAVENOUS ONCE A DAY, NOTES: 10/21 709 TAKING MULTIVITAMIN 1 TABLET CHEWABLE 1 TAB(S) ORALLY DAILY, NOTES: 10/20 2129 TAKING VITAMIN D (CHOLECALCIFEROL) 1000 UNIT TABLET 1 TABLET ORALLY ONCE A DAY, NOTES: NONE RECENT TAKING MELATONIN 3 MG TABLET 1 TABLET AT BEDTIME NEEDED WITH FOOD ORALLY ONCE A DAY, NOTES: 10/20 2129 TAKING FISH OIL 1200 MG CAPSULE 1 CAPSULE ORALLY TWICE A DAY, NOTES: 10/21 709 TAKING RIBOFLAVIN 25 MG TABLET 2 TABLETS ORALLY TWICE A DAY, NOTES: 10/21 709 TAKING PROTONIX 40 MG TABLET DELAYED RELEASE 1 TABLET ORALLY ONCE A DAY, NOTES: 10/21 709 TAKING TRAMADOL HCL 50 MG TABLET 1 TAB ORALLY EVERY 6 HOURS NEEDED/MMD#4, NOTES: NONE RECENT TAKING POTASSIUM CHLORIDE 10 MEQ CAPSULE EXTENDED RELEASE 1 CAPSULE WITH FOOD ORALLY TWICE A DAY, NOTES: 10/21 709 TAKING TIZANIDINE HCL 4 MG TABLET 1 TABLET NEEDED ORALLY BEFORE BEDTIME AND EVERY 6 HRS MDD2, NOTES: 10/20 2129 TAKING GABAPENTIN 300 MG CAPSULE 1 ORALLY BEFORE BEDTIME, NOTES: 10/20 2129 NOT-TAKING ASCORBIC ACID 500 MG TABLET CHEWABLE 1 TABLET ORALLY BID NOT-TAKING NAPROXEN 375 MG TABLET 1 TABLET ORALLY DAILY NEEDED NOT-TAKING ACETAMINOPHEN 500 MG TABLET 1 TABLET NEEDED ORALLY EVERY 6 HRS NOT-TAKING COMBI RX 1 1 DOSE TOPICALLY EVERY 6 HOURS NEEDED NOT-TAKING IBUPROFEN 600 MG TABLET 1 TABLET ORALLY THREE TIMES A DAY NOT-TAKING METHOCARBAMOL 750 MG TABLET 1 TABLET ORALLY EVERY 4 HRS NOT-TAKING PHENTERMINE HCL 15 MG CAPSULE 1 CAPSULE ORALLY ONCE A DAY MEDICATION LIST REVIEWED AND RECONCILED WITH THE PATIENT PAST MEDICAL HISTORY HYPOTHYROID LOW BACK PAIN RIGHT HIP PAIN 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 CONSTITUTIONAL: ANY CHANGE IN YOUR MEDICAL CONDITION? NO . CHILLS NO . FEVER NO . INFECTION: DO YOU HAVE NEW INFECTIONS? NO . DO YOU HAVE HISTORY OF MRSA? NO . MUSCULOSKELETAL: ANY NEW PATTERNS OF PAIN OR NUMBNESS? NO . GASTROENTEROLOGY: ANY NEW CHANGE IN BOWEL CONTROL? NO . GENITOURINARY: ANY NEW CHANGE IN BLADDER CONTROL? NO . IS THERE A CHANCE YOU COULD BE ? NO . HEMATOLOGY/LYMPH: DO YOU TAKE ANY BLOOD THINNERS? (FOR EXAMPLE- COUMADIN, PLAVIX, AGGRENOX, PLATEL, PRADAXA, OR XARELTO) NO . WHEN WAS YOUR LAST DOSE? DATE: TIME: . NEUROLOGY: HAVE YOU FALLEN IN THE PAST 6 MONTHS? NO . ANY NEW EXTREMITY NUMBNESS OR WEAKNESS? NO . CARDIOLOGY: DO YOU HAVE A PACEMAKER OR DEFIBRILLATOR? NO . RESPIRATORY: HAVE YOU BEEN SICK IN THE PAST WEEK? NO . FEVER NO . FLU LIKE SYMPTOMS? NO . COUGH NO . INTEGUMENTARY: DO YOU HAVE ANY RASHES OR OPEN SORES? NO . ALLERGIC/IMMUNO: ARE YOU ALLERGIC TO SHELLFISH OR IV DYE? NO . ANY NEW ALLERGIES? NO . PSYCHIATRIC: DO YOU HAVE THOUGHTS OF HURTING YOURSELF OR SOMEONE ELSE? NO . ARE YOU ABUSED, NEGLECTED, OR IN AN UNSAFE ENVIRONMENT? NO . ENDOCRINOLOGY: ARE YOU DIABETIC? NO . OTHER: DO YOU NEED ANY PRESCRIPTIONS? NO . IF YES, PLEASE LIST: ____ . ANY NEW PROBLEMS WITH YOUR MEDICATIONS? NO . WHEN DID YOU LAST EAT? 1946 . WHEN DID YOU LAST DRINK? 709 . WHAT DID YOU LAST DRINK? WATER . NAME OF PERSON DRIVING YOU HOME? GILBERT () . DO YOU HAVE ANY OTHER QUESTIONS OR CONCERNS NO . VITAL SIGNS WT 248.4 LBS, HT 69 IN, BMI 36.68 INDEX, BP 110/58 MM HG, HR 80 /MIN, RR 16 /MIN, TEMP 96.9 F, OXYGEN SAT % 96, SAFE IN ENV? (Y/N) YES, NA INITIALS MP 9:17, REVIEWED BY: BRAIN. ASSESSMENTS TROCHANTERIC BURSITIS, RIGHT HIP - M70.61 (PRIMARY) TREATMENT OTHERS NOTES: PREPROCEDURE DIAGNOSIS: BURSITIS AT THE RIGHT GREATER TROCHANTER OF THE FEMUR. POSTPROCEDURE DIAGNOSIS: BURSITIS AT THE RIGHT GREATER TROCHANTER OF THE FEMUR. PROCEDURE: INJECTION AT THE BURSA OF THE OF THE RIGHT GREATER TROCHANTER OF THE FEMUR UNDER FLUOROSCOPIC GUIDANCE. SURGEON: DR. CHANTAL PEARL STEAM FRAME OPERATOR: NONEANESTHESIA: LOCAL. PREOPERATIVE NOTE: THE PATIENT HAS A HISTORY OF RIGHT HIP PAIN. I EVALUATED THE PATIENT AND REVIEWED THE CHART. WE BOTH AGREE ON INJECTING OVER THE BURSA OF THE RIGHT GREATER TROCHANTER OF THE FEMUR. I WENT THROUGH THE RISKS, ALTERNATIVES, AND BENEFITS ASSOCIATED WITH THIS PROCEDURE. THE PATIENT WOULD LIKE TO PROCEED AND GIVE CONSENT TO PERFORMED THE PROCEDURE. THE PATIENT DENIES UNEXPLAINABLE WEIGHT LOSS, FEVERS, CHILLS, OR CHANGES IN HIS URINARY OR BOWEL CONTROL. DESCRIPTION OF PROCEDURE: AFTER CONSENT WAS TAKEN, THE PATIENT WAS BROUGHT TO THE PROCEDURE ROOM AND PLACED IN THE LEFT LATERAL DECUBITUS POSITION. THE RIGHT HIP AREA WAS CLEANED WITH CHLORAPREP SOLUTION AND DRAPED ASEPTICALLY. THE PROCEDURE WAS DONE UNDER STERILE CONDITIONS. I CHECKED LATERALITY WITH THE PATIENT AND THE STAFF IN THE PROCEDURE ROOM AT THE MOMENT OF THE TIME OUT. UNDER FLUOROSCOPIC GUIDANCE, TARGET WAS SELECTED AT THE [DEFAULT VALUE] GREATER TROCHANTER OF THE FEMUR. LIDOCAINE WAS USED TO NUMB THE SKIN AND THE SUBCUTANEOUS TISSUE BELOW IT. SPINAL NEEDLE, 22-GAUGE WAS ADVANCED UNDER FLUOROSCOPIC GUIDANCE AND FOLLOWING PATIENT FEEDBACK UNTIL THE TARGET WAS TOUCHED. POSITION OF THE NEEDLE WAS VERIFIED WITH AP AND LATERAL VIEWS. AFTER PROPER POSITION OF THE NEEDLE WAS ACHIEVED, ISOVUE M DYE, 30%, 0.25 ML WAS INJECTED SHOWING ADEQUATE SPREAD OF THE DYE. THEN A SOLUTION OF 20 ML OF BUPIVACAINE 0.25% AND KENALOG 40 MG WAS INJECTED. THERE WAS NO EVIDENCE OF BLOOD, PARESTHESIA, OR CEREBROSPINAL FLUID. THE PATIENT WAS SENT TO THE RECOVERY ROOM. THE PATIENT WAS MOVING THE EXTREMITIES AND DOING WELL. THERE WERE NO COMPLICATIONS DURING THE PROCEDURE. FLUOROSCOPY TIME 20 SECONDS.POSTOPERATIVE NOTE: I DISCUSSED ALTERNATIVES WITH THE PATIENT. WE WILL SEE THE PATIENT BACK IN SEVERAL WEEKS FOR REEVALUATION OF THE CASE. I AM LOOKING FOR LONG-LASTING PAIN RELIEF WITH THIS INTERVENTION. FLUOROSCOPIC TIME WAS 20 SECONDS. FURTHER RECOMMENDATIONS WILL BE DONE DEPENDING ON HOW THE PATIENT DOES. THERE WERE NO COMPLICATIONS.I, COLLIN MENDEZ, DOCUMENTED THE ABOVE INFORMATION ACTING A SCRIBE FOR DR. PEARL. I HAVE REVIEWED THE ABOVE DOCUMENT, WRITTEN BY COLLIN SAUER AND I VERIFY THAT IT IS ACCURATE. DIAGNOSTIC IMAGING [facility] FLUORO GUIDANCE (PAIN)[id number] PROCEDURE CODES 83715 DRAIN/INJ JOINT/BURSA W/O US 6045F RADXPS IN END [id number] PXD [id number] NEEDLE LOCALIZATION BY XRAY DISPOSITION & COMMUNICATION FOLLOW UP 3 WEEKS ELECTRONICALLY SIGNED BY CHANTAL PEARL MD ON 11/07/2016 AT 12:33 PM EDT DISCLAIMER : THIS IS A VISIT SUMMARY EXTRACTED FROM THE [employer] CHART. IT IS NOT A COPY OF THE [employer] PROGRESS NOTE. MTDD
== END ==
LOC: M PAIN 09:00
PROVIDERS: ATTEND Anesthesiology
DX: G89.29 Other chronic pain (principal); M70.61 Trochanteric bursitis, right hip; Z79.899 Other long term (current) drug therapy; Z79.891 Long term (current) use of opiate analgesic
CPT/HCPCS: 20610; 77002; J3301; Q9967

== ENCOUNTER 2016-10-28 11:32 | Day surgery (SDC) | payer OTHER ==
[~2016-10-28] VITALS: Ht 172.7 cm; Wt 109.0 kg
[~2016-10-28 11:32] MED LIST changes: -ACET50TAOT PO; -BUPIVACAINE HCL 0.25% 30 ML VIAL As Ordered ONE; -ELIQ5TAB PO; -FISH1000 PO; -GABA-282; -GABA-282 PO; -IBUPOTC PO; -ISOVUE-M 300 61% 15ML VIAL (Q9967) As Ordered ONE; -LEVO200T31 PO; -LIDOCAINE 1% SDV INJ 30 ML VIAL As Ordered ONE; -MELA3TAB49 PO; -MELA5TAB21 PO; -NORCOTAB PO; -PANT40TA2; -PANT40TA2 PO; -POTA99TA PO; -TIZA4CAP3 PO; -TRIAMCINOLONE ACETONIDE SUSP 40 MG/ML VIAL (J3301) As Ordered ONE; -TYLE325T5 PO; -VITA100T98 PO; -VITMTA PO; -diazePAM 5 MG TAB As Ordered ONE; -oxyCODONE 5MG TAB As Ordered ONE
[2016-10-28] MEDS ORDERED: PANT40TA2 (11:44)
[2016-10-28] MEDS ORDERED: GABA-282 (11:44)
[2016-10-28] MEDS ORDERED: ONDANSETRON 4MG/2ML VIAL (J2405) IV ONE (12:00)
[2016-10-28] MEDS ORDERED: KETOROLAC 30 MG/ML VIAL (J1885) IV ONE (12:00)
[2016-10-28] MEDS ORDERED: ONDANSETRON 4MG/2ML VIAL (J2405) As Ordered ONE ×2 (12:06→21:41)
[2016-10-28] MEDS ORDERED: KETOROLAC 30 MG/ML VIAL (J1885) As Ordered ONE (12:06)
[2016-10-28] MEDS ORDERED: NS 1,000 ML IV ONE (12:15)
[2016-10-28 12:33] LABS: BASO % 0.3 % (0.0-1.0); EOS # 0.2 K/mm3 (0.0-0.50); EOS % 1.6 % (0.0-3.0); LARGE UNSTAINED CELL # 0.1 K/mm3 (0.0-0.4); LARGE UNSTAINED CELL % 0.8 % (0.0-4.0); LYMPH # 1.3 K/mm3 (1.5-6.5); LYMPH % 8.9 % (24.0-44.0); MEAN CORPUSCULAR HEMOGLOBIN 31.1 pg (27.0-33.0); MEAN CORPUSCULAR HGB CONC 33.5 g/dl (32.0-36.5); MEAN CORPUSCULAR VOLUME 92.9 fl (80.0-96.0); MONO # 0.7 K/mm3 (0.0-0.8); MONO % 4.8 % (0.0-5.0); NEUTROPHILS # 11.4 K/mm3 (1.8-7.7); NEUTROPHILS % 83.7 % (36.0-66.0); PLATELET COUNT, AUTOMATED 249 k/mm3 (150-450); RED CELL DISTRIBUTION WIDTH 12.8 % (11.5-14.5); WHITE BLOOD COUNT 13.6 K/mm3 (4.0-10.0)
[2016-10-28 12:56] LABS: ALBUMIN 3.7 GM/DL (3.2-5.2); ALBUMIN/GLOBULIN RATIO 0.95 (1.00-1.93); ALKALINE PHOSPHATASE 57 U/L (45-117); ALT/SGPT 35 U/L (12-78); AMYLASE 37 U/L (25-115); ANION GAP 9 MEQ/L (8-16); AST/SGOT 19 U/L (15-37); BILIRUBIN,DIRECT < 0.1 MG/DL (0.0-0.2); BILIRUBIN,TOTAL 0.5 MG/DL (0.2-1.0); BLOOD UREA NITROGEN 14 MG/DL (7-18); CARBON DIOXIDE LEVEL 22 MEQ/L (21-32); CHLORIDE LEVEL 107 MEQ/L (98-107); CREATININE FOR GFR 0.86 MG/DL (0.55-1.02); GLOMERULAR FILTRATION RATE > 60.0 (>60); GLUCOSE, FASTING 95 MG/DL (70-105); POTASSIUM SERUM 4.3 MEQ/L (3.5-5.1); SODIUM LEVEL 138 MEQ/L (136-145); TOTAL PROTEIN 7.6 GM/DL (6.4-8.2)
[2016-10-28] MEDS ORDERED: GASTROGRAFIN SOLUTION 30ML (Q9963) As Ordered ONE (13:16)
[2016-10-28] MEDS ORDERED: ISOVUE-370 76% 100ML VIAL (Q9967) As Ordered ONE (13:50)
[2016-10-28] MEDS ORDERED: GASTROGRAFIN SOLUTION 30ML (Q9963) PO ONE ×2 (14:15→14:30)
[2016-10-28] MEDS ORDERED: MORPHINE 2 MG/ML 1ML SYRINGE IV ONE ×3 (15:30→18:45)
[2016-10-28] MEDS ORDERED: METOCLOPRAMIDE INJ 10MG/2ML VIAL (J2765) IV ONE (16:30)
[2016-10-28 16:42] LABS: CONTROL LINE HCG INT CTR LINE PRESENT
[2016-10-28] MEDS ORDERED: FISH1000 PO (16:48)
[2016-10-28] MEDS ORDERED: GABA-282 PO (16:48)
[2016-10-28] MEDS ORDERED: VITMTA PO (16:48)
[2016-10-28] MEDS ORDERED: MELA5TAB21 PO (16:48)
[2016-10-28] MEDS ORDERED: TIZA4CAP3 PO (16:48)
[2016-10-28] MEDS ORDERED: PANT40TA2 PO (16:48)
[2016-10-28] MEDS ORDERED: VITA100T98 PO (16:48)
[2016-10-28] MEDS ORDERED: LEVO200T31 PO (16:48)
[2016-10-28] MEDS ORDERED: POTA99TA PO (16:48)
--- NOTE | 2016-10-28 17:22 | REP ---
CT ABDOMEN AND PELVIS WITH ORAL AND IV CONTRAST: TECHNIQUE: Axial noncontrast images through the abdomen followed by contrast-enhanced images through the abdomen and pelvis using 100 mL Isovue 370 intravenous contrast material, with coronal and sagittal reformations. Visualized lung bases demonstrate chronic scarring in the left lung base laterally. Liver, spleen, adrenals, pancreas and kidneys are unremarkable in appearance. There is no abdominal aortic aneurysm. No adenopathy seen. There is no free air or free fluid. There is diffuse thickening of the appendix with dilatation and mild streaky surrounding inflammation compatible with appendicitis. No pelvic mass is seen. There is no free air or free fluid. IUD is seen in the uterus. The urinary bladder is mildly distended and grossly unremarkable. IMPRESSION: Findings compatible with appendicitis. No free air or free fluid. Signed by Satish Yost MD 10/29/2016 05:04 P
[2016-10-28] MEDS ORDERED: PIPERACILLIN/TAZOBACTAM SOD 3.375 GM in D5W MINI-BAG PLUS 50 ML IV SCH (20:00)
[2016-10-28] MEDS ORDERED: METOCLOPRAMIDE INJ 10MG/2ML VIAL (J2765) IV PRN (20:00)
[2016-10-28] MEDS ORDERED: ONDANSETRON 4MG/2ML VIAL (J2405) IV PRN ×2 (20:00→22:45)
[2016-10-28] MEDS ORDERED: MORPHINE 2 MG/ML 1ML SYRINGE IV PRN ×2 (20:00→22:45)
[2016-10-28] MEDS ORDERED: KETOROLAC 30 MG/ML VIAL (J1885) IV PRN (20:00)
[2016-10-28] MEDS ORDERED: PROMETHAZINE INJ 25 MG/ML VIAL (J2550) IV PRN (20:00)
[2016-10-28] MEDS ORDERED: ZOSYN 3.375 GM VIAL (J2543) As Ordered ONE (20:27)
[2016-10-28] MEDS ORDERED: BUPIVACAINE HCL 0.25% 30 ML VIAL As Ordered ONE (20:33)
[2016-10-28] MEDS: LR 1,000 ML IV SCH ×2 (20:39→23:55)
[2016-10-28] MEDS ORDERED: VECURONIUM BROMIDE 10 MG VIAL As Ordered ONE (20:41)
[2016-10-28] MEDS ORDERED: fentaNYL 100 MCG/2 ML INJECTION (J3010) As Ordered ONE (20:41)
[2016-10-28] MEDS ORDERED: PROPOFOL 200 MG/20 ML VIAL As Ordered ONE (20:41)
[2016-10-28] MEDS ORDERED: LIDOCAINE 2% INJ 100 MG/5 ML SDV (FOR ANES.) As Ordered ONE (20:41)
[2016-10-28] MEDS ORDERED: SUCCINYLCHOLINE 100 MG/5 ML SYRINGE (J0330) As Ordered ONE (20:41)
[2016-10-28] MEDS ORDERED: MIDAZOLAM INJ 2 MG/2 ML VIAL (J2250) As Ordered ONE (20:41)
[2016-10-28] MEDS ORDERED: SEVOFLURANE INHAL SOLN 250 ML BTL As Ordered ONE (20:44)
[2016-10-28] MEDS ORDERED: KETOROLAC 60 MG/2 ML VIAL (J1885) As Ordered ONE (21:41)
[2016-10-28] MEDS ORDERED: dexameTHASONE 4 MG/ML 1ML VIAL (J1100) As Ordered ONE (21:41)
[2016-10-28] MEDS ORDERED: HYDROmorphone HCL 2 MG/ML 1ML VIAL (J1170) As Ordered ONE (21:42)
[2016-10-28] MEDS ORDERED: ACETAMINOPHEN TAB 650MG DOSE (2X325MG) PO PRN (22:30)
[2016-10-28] MEDS ORDERED: fentaNYL 100 MCG/2 ML INJECTION (J3010) IV PRN (22:45)
[2016-10-28 23:15] VITALS: BP 108/59
[2016-10-28 23:45] VITALS: BP 114/57
[2016-10-29] VITALS (7 sets, daily range): BP systolic 111–133; BP diastolic 56–73
[2016-10-29] MEDS ORDERED: LEVOTHYROXINE 100MCG TABLET (0.1MG) PO SCH (06:00)
[2016-10-29] MEDS ORDERED: IBUPROFEN 400 MG TAB PO PRN (09:30)
[2016-10-29] MEDS ORDERED: NORCO, ANEXSIA 5/325MG TABLET (HYDROcodone/ACETAMINOPHEN) PO PRN (09:30)
[2016-10-29] MEDS ORDERED: NORCOTAB PO (09:45)
[2016-10-29] MEDS ORDERED: GABAPENTIN 300 MG CAP PO SCH (21:00)
[2016-10-29] MEDS ORDERED: tiZANidine 4 MG TAB PO SCH (21:00)
--- NOTE | 2016-10-30 14:03 | RO ---
DATE OF PROCEDURE: 10/28/2016 PREOPERATIVE DIAGNOSIS: Acute appendicitis. POSTOPERATIVE DIAGNOSIS: Acute appendicitis. PROCEDURE PERFORMED: Laparoscopic appendectomy. SURGEON: Dr. Gould ANESTHESIA: General. INDICATIONS FOR THE PROCEDURE: Patient is a 26-year-old woman who presented to the emergency department with a several hour history of abdominal discomfort. She describes pain that was fairly vague in character at first. She had some associated nausea and vomiting. She presented to the emergency department with worsening pain, which seemed to be more localized to the right midabdomen. She underwent evaluation and was found to have a mild elevation of her white blood cell count with a left shift. A CT scan showed a somewhat dilated and inflamed appearing appendix in the right midabdomen. She is now for a laparoscopic appendectomy. DESCRIPTION OF OPERATIVE PROCEDURE: The patient was placed under general endotracheal anesthesia. The patient's abdomen was prepped and draped in a sterile fashion. 0.25% Marcaine was infiltrated at each of the trocar sites. A short supraumbilical midline incision was made. This was deepened through the subcutaneous fat and the fascia was opened in the midline. A Dylan cannula was inserted, and the abdomen was insufflated with carbon dioxide gas. The laparoscope was placed. Initial examination showed normal-appearing loops of small and large bowel. The gallbladder was partially seen and appeared normal, as was the left lobe of the liver. The patient was rolled the left and tilted to Trendelenburg position. A 5 mm trocar was placed in the left lower quadrant and a second trocar in the low midline. Graspers were inserted. The terminal ileum was pulled to the left and the inflamed appendix was identified. The appendix was grasped and elevated. Using the hook cautery, some attachments of the appendix to the retroperitoneum were lysed. Dissection proceeded up toward the base of the appendix. An opening was created through the mesoappendix, and the mesoappendix was stapled with a vascular load of the endoscopic 45 mm stapler. Hemostasis was excellent. A few filmy strands of periappendiceal tissue were then lysed with the hook cautery. The base of the appendix was stapled with a blue load of the stapler and the appendix was placed in an Endopouch. A single bleeding point along the staple line was controlled with cautery. The right side of the abdomen was irrigated and inspected and there was no evidence of any bleeding. The appendiceal stump closure looked excellent with complete resection of the appendix. The patient was returned to a flat position. The abdomen was deflated and the trocars were all removed. The appendix was recovered and sent for permanent pathology. The fascia was closed with interrupted simple sutures of #2-0 Vicryl. The skin incisions were all closed with buried #5-0 Vicryl and Steri-Strips. Light dressings were applied. The patient tolerated the procedure well without apparent complication. She was awakened and extubated and moved to the recovery room in stable condition. Edited: 11/01/2016 1448 MTDD
== END 2016-10-29 12:45 | disposition home or self-care (01) ==
LOC: M ED 11:32 → M SDC 19:53 → M PED 23:15 → M SDC 10-29 12:45
PROVIDERS: ATTEND Surgery
DX: K35.80 Unspecified acute appendicitis (principal); E03.9 Hypothyroidism, unspecified; K21.9 Gastro-esophageal reflux disease without esophagitis; M54.5 Low back pain; M25.551 Pain in right hip; Z87.820 Personal history of traumatic brain injury; Z79.899 Other long term (current) drug therapy
CPT/HCPCS: 44970; 74177; 80048; 80076; 81001; 81025; 82150; 83605; 83690; 84703; 85025; 88304; 96374; 96375; 96376; 99284; J1100; J1170; J1885; J2250; J2405; J2543; J2765; J3010; Q9963; Q9967

== ENCOUNTER 2016-11-04 12:16 | Inpatient (IN) | payer OTHER ==
[~2016-11-04] VITALS: Ht 175.3 cm; Wt 110.0 kg
[~2016-11-04 12:16] MED LIST changes: +FISH1000 PO; +GABA-282; +GABA-282 PO; +LEVO200T31 PO; +MELA5TAB21 PO; +NORCOTAB PO; +PANT40TA2; +PANT40TA2 PO; +POTA99TA PO; +TIZA4CAP3 PO; +VITA100T98 PO; +VITMTA PO
[2016-11-04 13:59] LABS: BASO % 0.5 % (0.0-1.0); EOS # 0.3 K/mm3 (0.0-0.50); EOS % 3.2 % (0.0-3.0); LARGE UNSTAINED CELL # 0.1 K/mm3 (0.0-0.4); LARGE UNSTAINED CELL % 1.1 % (0.0-4.0); LYMPH # 1.8 K/mm3 (1.5-6.5); LYMPH % 17.1 % (24.0-44.0); MEAN CORPUSCULAR HEMOGLOBIN 31.5 pg (27.0-33.0); MEAN CORPUSCULAR HGB CONC 34.7 g/dl (32.0-36.5); MEAN CORPUSCULAR VOLUME 90.9 fl (80.0-96.0); MONO # 0.7 K/mm3 (0.0-0.8); MONO % 7.5 % (0.0-5.0); NEUTROPHILS # 6.8 K/mm3 (1.8-7.7); NEUTROPHILS % 70.6 % (36.0-66.0); PLATELET COUNT, AUTOMATED 210 k/mm3 (150-450); RED CELL DISTRIBUTION WIDTH 12.9 % (11.5-14.5); WHITE BLOOD COUNT 9.6 K/mm3 (4.0-10.0)
[2016-11-04 14:05] LABS: ALBUMIN 3.7 GM/DL (3.2-5.2); ALBUMIN/GLOBULIN RATIO 1.03 (1.00-1.93); ALKALINE PHOSPHATASE 68 U/L (45-117); ALT/SGPT 33 U/L (12-78); ANION GAP 12 MEQ/L (8-16); AST/SGOT 17 U/L (15-37); BILIRUBIN,TOTAL 0.7 MG/DL (0.2-1.0); BLOOD UREA NITROGEN 15 MG/DL (7-18); CALCIUM LEVEL 8.7 MG/DL (8.5-10.1); CARBON DIOXIDE LEVEL 24 MEQ/L (21-32); CHLORIDE LEVEL 111 MEQ/L (98-107); CREATININE FOR GFR 0.77 MG/DL (0.55-1.02); GLOMERULAR FILTRATION RATE > 60.0 (>60); GLUCOSE, FASTING 85 MG/DL (70-105); POTASSIUM SERUM 4.2 MEQ/L (3.5-5.1); SODIUM LEVEL 147 MEQ/L (136-145); TOTAL PROTEIN 7.3 GM/DL (6.4-8.2)
--- NOTE | 2016-11-04 14:15 | REP ---
Bilateral lower extremity Duplex Doppler venous ultrasound: Real time compression and duplex Doppler interrogation of the bilateral lower extremity deep venous system is performed. Bilaterally, the common femoral, superficial femoral and popliteal veins are fully compressible with transducer pressure and demonstrate normal spontaneous and phasic flow, without evidence of deep venous thrombosis. Impression: No evidence of deep venous thrombosis of the bilateral lower extremity femoral popliteal venous system. Signed by Satish Yost MD 11/04/2016 02:05 P
[2016-11-04] MEDS ORDERED: ISOVUE-370 76% 100ML VIAL (Q9967) As Ordered ONE (15:15)
--- NOTE | 2016-11-04 16:38 | REP ---
CT pulmonary angiogram: With IV contrast. History: Shortness of breath. Postop. History of pulmonary embolus. Comparison studies: March 18, 2015. Contrast dose: 75 cc's of Isovue [address] technique: Helical scanning is acquired and overlapping 1.5 mm and contiguous 3 mm axial images are reformatted. In addition, a 3-D work station is deployed to generate thick slab maximum intensity projection images in sagittal and coronal imaging projections. CT pulmonary angiographic findings: There is good opacification of the pulmonary arterial tree. There is a moderate to large burden of pulmonary embolus with bilateral lower lobe pulmonary arterial filling defects. There are bilateral upper lobe thrombi in the pulmonary arterial tree and there is a thin web of filling defect crossing the pulmonary arterial bifurcation consistent with a saddle pulmonary embolus. No pleural or pericardial effusion is seen. Visualized upper abdominal structures are unremarkable. Thoracic aorta is normal in coarse, contour and homogeneous in signal intensity. The lung dean are essentially clear. 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 Emboli are seen in both upper and lower lobe pulmonary arterial branches. These findings were reported by telephone to the referring provider, DEBORAH Motley, in the ED, at the time of the exam. Signed by Leighton Pearson MD 11/04/2016 04:57 P
[2016-11-04] MEDS ORDERED: ENOXAPARIN 120 MG/0.8 ML SYR (J1650) SC ONE (16:45)
[2016-11-04] MEDS ORDERED: ENOXAPARIN 100MG/1ML SYRINGE (J1650) SC ONE (16:45)
[2016-11-04] MEDS ORDERED: ACETAMINOPHEN 325 MG TAB PO ONE (17:00)
[2016-11-04] MEDS ORDERED: ACET50TAOT PO (17:15)
[2016-11-04] MEDS ORDERED: IBUPOTC PO (17:15)
[2016-11-04] MEDS ORDERED: ACETAMINOPHEN TAB 650MG DOSE (2X325MG) PO PRN (18:00)
[2016-11-04] MEDS ORDERED: NS 0.45% 1,000 ML IV SCH (19:15)
[2016-11-04 20:30] VITALS: BP 126/89
[2016-11-04] MEDS ORDERED: RIBOFLAVIN 200 MG PO SCH (21:00)
[2016-11-04 21:10] LABS: FREE T4 1.89 NG/DL (0.76-1.46)
[2016-11-04] MEDS: MULTIVITAMINS/MINERALS THERAP 1 TAB PO SCH (21:31)
[2016-11-04] MEDS: GABAPENTIN 300 MG CAP PO SCH (21:31)
[2016-11-04] MEDS: OMEGA-3 1050MG CAPSULE PO SCH (21:31)
[2016-11-04] MEDS: tiZANidine 4 MG TAB PO SCH (21:31)
[2016-11-04] MEDS ORDERED: MELA3TAB49 PO (22:47)
[2016-11-04] MEDS: MELATONIN 3 MG PO SCH (23:20)
[2016-11-05] VITALS (7 sets, daily range): BP systolic 99–129; BP diastolic 51–76
[2016-11-05 05:34] LABS: BASO % 0.4 % (0.0-1.0); EOS # 0.4 K/mm3 (0.0-0.50); EOS % 4.6 % (0.0-3.0); LARGE UNSTAINED CELL # 0.1 K/mm3 (0.0-0.4); LARGE UNSTAINED CELL % 1.5 % (0.0-4.0); LYMPH # 2.1 K/mm3 (1.5-6.5); LYMPH % 23.6 % (24.0-44.0); MEAN CORPUSCULAR HEMOGLOBIN 31.4 pg (27.0-33.0); MEAN CORPUSCULAR HGB CONC 34.3 g/dl (32.0-36.5); MEAN CORPUSCULAR VOLUME 91.7 fl (80.0-96.0); MONO # 0.7 K/mm3 (0.0-0.8); MONO % 8.5 % (0.0-5.0); NEUTROPHILS # 5.1 K/mm3 (1.8-7.7); NEUTROPHILS % 61.3 % (36.0-66.0); PLATELET COUNT, AUTOMATED 164 k/mm3 (150-450); WHITE BLOOD COUNT 8.4 K/mm3 (4.0-10.0)
[2016-11-05 05:52] LABS: ANION GAP 11 MEQ/L (8-16); BLOOD UREA NITROGEN 15 MG/DL (7-18); CALCIUM LEVEL 8.2 MG/DL (8.5-10.1); CARBON DIOXIDE LEVEL 23 MEQ/L (21-32); CHLORIDE LEVEL 110 MEQ/L (98-107); CREATININE FOR GFR 0.81 MG/DL (0.55-1.02); GLOMERULAR FILTRATION RATE > 60.0 (>60); GLUCOSE, FASTING 92 MG/DL (70-105); MAGNESIUM LEVEL 2.2 MG/DL (1.8-2.4); POTASSIUM SERUM 4.2 MEQ/L (3.5-5.1); SODIUM LEVEL 144 MEQ/L (136-145)
--- NOTE | 2016-11-05 06:12 | HPEPDOC ---
General Date of Admission Nov 04, 2016 at 17:39 Attending Physician: GILDA HAM MD Chief Complaint The patient is a 26-year-old female admitted with a reason for visit of Pulmonary Embolism. History of Present Illness PRIMARY CARE PROVIDER: Langley Ezequiel CHIEF COMPLAINT: SOB and chest tightness HISTORY OF PRESENT ILLNESS: 26 yo F presents for a 1 week hx of SOB and chest tightness. States last evening, had an appendectomy for appendicitis. After the anesthesia wore off from the surgery, she began to have some chest tightness and SOB. Thought it was not that ba and she ignored it. Was progressively getting better. However, 1 week later, she still felt SOB and had chest tightness. Her mother who is a medical device and her grandmother who is an RN, advised her to go to the ED to be evaluated as she has had a hx of PE in the past around 10 years ago after a L ACL meniscus repair in both lungs with a concomitant hx of using OCP and having a L leg brace on for 4 1/2 months prior to her surgery for the ACL meniscal repair. Before she could have the surgery, she states that a blood clot at the base of the L ankle shot up into the lungs during anesthesia. Admits to mid-chest soreness, L-sided rib pain underneath L breast, chills, lightheadedness but no dizziness, abdominal incisional site pain, a bruised abdomen in areas of her incisional sites. Denies at this time SOB, fever, palpitations, cough, hemoptysis, nausea, vomiting, diarrhea, constipation, hematuria, hematochezia, edema, blurred vision, weakness. 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 ALLERGIES: None. SOCIAL HISTORY: Denies smoking. Admits to EtoH: drinks 1-2 mag every 2 weeks No illicit drugs Recent travel: 11 1/2 hour car ride to and from [place] in September No recent plane rides Has mirena IUD but no OCPs Is not an immobile sedentary type person FAMILY HISTORY: Mother: hypothyroidism at age 17 (not -induced), multiple sclerosis Maternal Grandmother: cervical, breast cancer, CHF, Atrial Fibrillation, hypothyroidism induced by Paternal Grandfather and Great Grandfather: venous circulation issues, both at age 73 of CHF Paternal Grandmother: thyroid cancer One of her Grandfathers (paternal or maternal): prostate cancer One of her Great Grandmothers (paternal or maternal): breast cancer, at age 42 or 43 Maternal Aunts: hypothyroidism induced by Heart Conditions Diabetes No blood clots or PEs or DVTs that run in family CODE STATUS: FULL CODE REVIEW OF SYSTEMS: All ROS negative except for that as stated above in HPI. PHYSICAL EXAMINATION: Please see VS and PE below. LABORATORY DATA: Please see below. ELECTROCARDIOGRAM: None RADIOLOGY: CT Angio: There is moderate to large quantity of pulmonary emboli bilaterally including a saddle pulmonary embolus crossing the pulmonary arterial bifurcation. Emboli are seen in both upper and lower lobe pulmonary arterial branches. Vascular U/S: (-) for DVT ASSESSMENT: 26 yo F is presenting and being admitted for management of bilateral pulmonary emboli. CT angio showed moderate to large quantity of pulmonary emboli bilaterally including a saddle pulmonary embolus crossing the pulmonary arterial bifurcation. Emboli are seen in both upper and lower lobe pulmonary arterial branches. PLAN: Admit to PCU. Lovenox 110 mg BID Acetaminophen PRN pain control. Will decide anticoagulant tomorrow. Continuous pulse ox. Obtain EKGs tonight and tomorrow Monitor BMPs and CBCs. Follow up hypercoagulable workup. Cardiac marker panel q8h. Removed Mirena IUD in the ED on evening. 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 DVT ppx: lovenox 110 mg BID FULL CODE STATUS Immunizations as per protocol I have both independently examined this patient as well as reviewed the dictated note. I have discussed in detail with the resident the findings and plan of treatment as documented in the residents note. I will continue to follow the patient and offer further guidance to the patients care as necessary during this hospital stay. Home Medications Scheduled (Melatonin) 3 Mg Tab, 3 MG PO QHS, (Reported) Apixaban Base (Eliquis) 5 Mg Tab, 10 MG PO BID Please take 10 mg eliquis twice daily for 6 days. Apixaban Base (Eliquis) 5 Mg Tab, 5 MG PO BID Please take 5 mg eliquis twice daily after completion of 10 mg eliquis tablets first. Fish Oil (Fish Oil) 1,000 Mg Cap, 1,000 MG PO BID, (Reported) Gabapentin (Gabapentin) 300 Mg Cap, 300 MG PO QHS, (Reported) Levothyroxine Sodium (Levoxyl) 200 Mcg Tab, 200 MCG PO DAILY, (Reported) Multivitamins *[facility] STOCKED* (Thera M Plus *[facility] STOCKED*) 1 Tab Tab, 1 TAB PO QHS , (Reported) Pantoprazole Sodium (Pantoprazole Sodium) 40 Mg Tab, 40 MG PO DAILY, (Reported) Potassium (Potassium) 99 Mg Tab, 99 MG PO DAILY, (Reported) Riboflavin (Vitamin B-2) 100 Mg Tab, 200 MG PO BID, (Reported) Tizanidine Hydrochloride (Tizanidine HCl) 4 Mg Cap, 4 MG PO QHS, (Reported) Scheduled PRN Acetaminophen (Tylenol) 325 Mg Tab, 650 MG PO Q4HP PRN for PAIN / FEVER Allergies Coded Allergies: No Known Allergies (Unverified , 07/05/14) Physical Examination General Exam: Positive: Alert, Cooperative, No Acute Distress Eye Exam: Positive: Conjunctiva & lids normal ENT Exam: Positive: Atraumatic Neck Exam: Positive: Supple, Negative: JVD, thyromegaly, Lymphadenopathy Chest Exam: Positive: Clear to auscultation, Negative: Rales, Rhonchi, Wheezing Heart Exam: Positive: Rate Normal, Regular Rhythm, Normal S1, Normal S2 Abdomen Exam: Positive: Normal bowel sounds, Soft, Other (only tender in areas of incisional sites, incision sites with bandages in place and are clean/dry/ intact without active drainage.), Negative: Hepatospenomegaly Extremity Exam: Positive: Normal pulses (+2 radial and dorsalis pedis pulses bilaterally), Negative: Clubbing, Cyanosis, Edema Skin Exam: Positive: Nl turgor and temperature, Negative: Rash Neuro Exam: Positive: Normal Speech, Other (No focal neurologic deficits appreciated) Psych Exam: Positive: Mental status NL, Mood NL, Memory Intact, Oriented x 3 Vital Signs Vital Signs Date Time Temp Pulse Resp B/P (MAP) Pulse Ox O2 Delivery O2 Flow Rate FiO2 11/04/16 13:56 11/04/16 12:17 96.7 85 16 96 Room Air Laboratory Data Labs 24H Laboratory Tests 2 11/04/16 13:29: White Blood Count 9.6, Red Blood Count 4.36, Hemoglobin 13.7, Hematocrit 39.6, Mean Corpuscular Volume 90.9, Mean Corpuscular Hemoglobin 31.5, Mean Corpuscular Hemoglobin Concent 34.7, Red Cell Distribution Width 12.9, Platelet Count 210, Neutrophils (%) (Auto) 70.6H, Lymphocytes (%) (Auto) 17.1L, Monocytes (%) (Auto) 7.5H, Eosinophils (%) (Auto) 3.2H, Basophils (%) (Auto) 0.5 , Neutrophils # (Auto) 6.8, Lymphocytes # (Auto) 1.8, Monocytes # (Auto) 0.7, Eosinophils # (Auto) 0.3, Basophils # (Auto) 0.0, Large Unclassified Cells % 1.1 , Large Unclassified Cells # 0.1, D-Dimer, Quantitative > 4000.0H, Anion Gap 12 , Glomerular Filtration Rate > 60.0, Blood Urea Nitrogen 15, Creatinine 0.77, Sodium Level 147H, Potassium Level 4.2, Chloride Level 111H, Carbon Dioxide Level 24, Calcium Level 8.7, Aspartate Amino Transf (AST/SGOT) 17, Alanine Aminotransferase (ALT/SGPT) 33, Alkaline Phosphatase 68, Total Bilirubin 0.7, Total Protein 7.3, Albumin 3.7, Albumin/Globulin Ratio 1.03 11/04/16 18:56: 11/04/16 18:57: CBC/BMP Laboratory Tests 11/04/16 13:29 Red Blood Count 4.36, Mean Corpuscular Volume 90.9, Mean Corpuscular Hemoglobin 31.5, Mean Corpuscular Hemoglobin Concent 34.7, Red Cell Distribution Width 12.9 , Neutrophils (%) (Auto) 70.6 H, Lymphocytes (%) (Auto) 17.1 L, Monocytes (%) ( Auto) 7.5 H, Eosinophils (%) (Auto) 3.2 H, Basophils (%) (Auto) 0.5, Neutrophils # (Auto) 6.8, Lymphocytes # (Auto) 1.8, Monocytes # (Auto) 0.7, Eosinophils # (Auto) 0.3, Basophils # (Auto) 0.0, Calcium Level 8.7, Aspartate Amino Transf (AST/SGOT) 17, Alanine Aminotransferase (ALT/SGPT) 33, Alkaline Phosphatase 68, Total Bilirubin 0.7, Total Protein 7.3, Albumin 3.7 Plan / VTE VTE Prophylaxis Ordered?: Yes (lovenox) LUIS PALMER OGME-1 Nov 04, 2016 19:42 GILDA HAM MD Nov 22, 2016 15:02
[2016-11-05] MEDS: LEVOTHYROXINE 100MCG TABLET (0.1MG) PO SCH (06:40)
[2016-11-05] MEDS: PANTOPRAZOLE 40MG TAB (PROTONIX) PO SCH (08:49)
[2016-11-05] MEDS: OMEGA-3 1050MG CAPSULE PO SCH ×2 (08:49→20:16)
[2016-11-05] MEDS ORDERED: ENOXAPARIN 120 MG/0.8 ML SYR (J1650) SC SCH (09:00)
[2016-11-05] MEDS: RIBOFLAVIN PO SCH ×2 (10:06→18:11)
[2016-11-05] MEDS: [UNRECOGNIZED DRUG - OTHER] PO SCH ×2 (10:06→18:11)
[2016-11-05] MEDS: GABAPENTIN 300 MG CAP PO SCH (20:16)
[2016-11-05] MEDS: APIXABAN 5 MG TAB (ELIQUIS) PO SCH (20:16)
[2016-11-05] MEDS: tiZANidine 4 MG TAB PO SCH (20:16)
[2016-11-05] MEDS: MULTIVITAMINS/MINERALS THERAP 1 TAB PO SCH (20:16)
[2016-11-05] MEDS: MELATONIN 3 MG PO SCH (20:17)
[2016-11-06] MEDS: LEVOTHYROXINE 100MCG TABLET (0.1MG) PO SCH (05:30)
[2016-11-06 06:00] VITALS: BP 102/53
[2016-11-06 07:10] LABS: BASO % 0.4 % (0.0-1.0); EOS # 0.2 K/mm3 (0.0-0.50); EOS % 3.8 % (0.0-3.0); LARGE UNSTAINED CELL # 0.2 K/mm3 (0.0-0.4); LARGE UNSTAINED CELL % 3.3 % (0.0-4.0); LYMPH # 1.5 K/mm3 (1.5-6.5); LYMPH % 22.8 % (24.0-44.0); MEAN CORPUSCULAR HEMOGLOBIN 31.3 pg (27.0-33.0); MONO # 0.6 K/mm3 (0.0-0.8); MONO % 8.4 % (0.0-5.0); NEUTROPHILS % 61.4 % (36.0-66.0); PLATELET COUNT, AUTOMATED 189 k/mm3 (150-450); RED CELL DISTRIBUTION WIDTH 12.6 % (11.5-14.5); WHITE BLOOD COUNT 6.6 K/mm3 (4.0-10.0)
[2016-11-06 07:17] LABS: ANION GAP 7 MEQ/L (8-16); BLOOD UREA NITROGEN 15 MG/DL (7-18); CALCIUM LEVEL 8.3 MG/DL (8.5-10.1); CARBON DIOXIDE LEVEL 25 MEQ/L (21-32); CHLORIDE LEVEL 112 MEQ/L (98-107); CREATININE FOR GFR 0.84 MG/DL (0.55-1.02); GLOMERULAR FILTRATION RATE > 60.0 (>60); GLUCOSE, FASTING 102 MG/DL (70-105); MAGNESIUM LEVEL 2.2 MG/DL (1.8-2.4); POTASSIUM SERUM 4.1 MEQ/L (3.5-5.1); SODIUM LEVEL 144 MEQ/L (136-145)
[2016-11-06] MEDS: PANTOPRAZOLE 40MG TAB (PROTONIX) PO SCH (07:55)
[2016-11-06] MEDS: OMEGA-3 1050MG CAPSULE PO SCH (07:55)
[2016-11-06] MEDS: APIXABAN 5 MG TAB (ELIQUIS) PO SCH (07:56)
[2016-11-06] MEDS: [UNRECOGNIZED DRUG - OTHER] PO SCH (07:57)
[2016-11-06] MEDS: RIBOFLAVIN PO SCH (07:57)
[2016-11-06] MEDS ORDERED: TYLE325T5 PO (08:35)
[2016-11-06] MEDS ORDERED: ELIQ5TAB PO (08:35)
--- NOTE | 2016-11-06 11:55 | ECGEPIP ---
Stationary ECG Study [facility] Test Date: 2016-11-05 Pat Name: ERIN DESAI Department: Room: [place] [address] Gender: F Tipple Boss: ANTOINE : 1990 Requested By: LUSI CABRERA Order Number: [id number] Reading MD: Maury Lira Measurements Intervals [place] Rate: 76 P: 14 HI: 151 QRS: -4 QRSD: 88 T: 11 QT: 380 QTc: 428 Interpretive Statements SINUS RHYTHM POOR R WAVE PROGRESSION POOR R WAVE PROGRESSION IS NEW SINCE 03/18/15 Electronically Signed On 11-06-2016 11:54:31 EDT by Maury Lira
--- NOTE | 2016-11-07 16:53 | IPNPDOC ---
Text Note Date of Service The patient was seen on 11/05/16. NOTE Subjective: Patient seen and examined at bedside. Denies headache, dizziness, blurred vision , fevers, chills, chest pain, SOB, nausea, vomiting, abdominal pain, diarrhea, constipation. Admits to some cramping in her legs. Objective: Please see VS and PE below. Laboratory data: ESR: 39 CBC WNL BMP WNL Troponin <0.02 x 3 CRP: 3.19 Free T4: 1.89 TSH: 0.675 D-dimer: >4000 Hypercoagulable Workup Pending and Ordered Imaging: No new imaging today. EKG: SINUS RHYTHM POOR R WAVE PROGRESSION POOR R WAVE PROGRESSION IS NEW SINCE 03/18/15 Rate 76, WI 151, QRS duration 88, QTc 428. Assessment/Plan: 26 yo F is presenting and being admitted for management of bilateral pulmonary emboli. CT angio showed moderate to large quantity of pulmonary emboli bilaterally including a saddle pulmonary embolus crossing the pulmonary arterial bifurcation. Emboli are seen in both upper and lower lobe pulmonary arterial branches. Bilateral Pulmonary Emboli: have begun weight-based anticoagulation with Lovenox 110 mg BID. Acetaminophen PRN pain control. Will begin eliquis 10 mg BID today for a total anticipated therapy of 7 days. Then, patient will begin eliquis 5 mg BID. Continuous pulse ox. EKG today showed sinus rhythm with poor R wave progression which is new since 03/18/15. Please see above for more information. Continue to monitor vital signs, BMP, and CBC which were WNL today. Troponins have been (-) x 3. Hypercoagulable workup pending. Hypothyroidism: TSH was 0.675 and Free T4 was 1.89. Would recommend repeat thyroid panel in 6 weeks. Patient may be on too high a dose of levothyroxine as her TSH is being suppressed but her free T4 is high and she is in subclinical hyperthyroidism range. Herniated Disc in the Back: L5-S1/Nerve Damage: tylenol PRN pain. Torn Cartilage R Hip/Greater Trochanteric Bursitis--sees [facility] who prescribe pain medications for this. Insomnia: patient's own home melatonin DVT ppx: eliquis 10 mg BID FULL CODE STATUS Immunizations as per protocol My preceptor for this patient encounter was Dr. Jairo Antonio, and was physically present in the building during the encounter and was fully available. As needed, all aspects of the patient interview, examination, medical decision making process, and medical care plan development were reviewed and approved by the preceptor. Preceptor is aware and concurs with the plan as stated in the body of this note and will attest to such by his/her cosignature. VS,Fishbone, I+O VS, Fishbone, I+O Laboratory Tests 11/05/16 05:21 Red Blood Count 3.99 L, Mean Corpuscular Volume 91.7, Mean Corpuscular Hemoglobin 31.4, Mean Corpuscular Hemoglobin Concent 34.3, Red Cell Distribution Width 13.0, Neutrophils (%) (Auto) 61.3, Lymphocytes (%) (Auto) 23.6 L, Monocytes (%) (Auto) 8.5 H, Eosinophils (%) (Auto) 4.6 H, Basophils (%) (Auto) 0.4, Neutrophils # (Auto) 5.1, Lymphocytes # (Auto) 2.1, Monocytes # ( Auto) 0.7, Eosinophils # (Auto) 0.4, Basophils # (Auto) 0.0, Calcium Level 8.2 L , Total Creatine Kinase 27 Vital Signs Date Time Temp Pulse Resp B/P (MAP) Pulse Ox O2 Delivery O2 Flow Rate FiO2 11/05/16 12:00 98.1 85 16 120/65 (83) 98 Room Air I&O- Last 24 Hours up to 6 AM 11/05/16 05:59 Intake Total 480 ml Output Total 250 ml Balance 230 ml Physical Examination Physical Examination Vital Signs/I&O Vital Signs Date Time Temp Pulse Resp B/P (MAP) Pulse Ox O2 Delivery O2 Flow Rate FiO2 11/06/16 06:00 96.7 69 18 102/53 (69) 96 Room Air I&O- Last 24 Hours up to 6 AM 11/07/16 06:00 Intake Total 660 ml Balance 660 ml General Exam: Positive: alert, talkative, cooperative, no acute distress, oriented times three ENT EXAM: Positive: normocephalic, atraumatic Neck Exam: Positive: Supple, Negative: Lymphadenopathy, Thyromegaly Chest Exam: Positive: Clear to auscultation, Negative: Wheezing, Rales, Rhonchi Heart Exam: Positive: Regular rate and rhythm, Normal S1, S2 Abdominal Exam: Positive: Normal bowel sounds, Soft, Nondistended, Other (+ Tenderness to palpation near areas of incisional sites. Otherwise, no peritoneal signs. Incisional sites clean/dry/intact without active drainage), Negative: Hepatospenomegaly Extremity Exam: Positive: Edema (mild edema in bilateral lower extremities), Normal pulses (+varicose veins noticeable in lower extremities. In addition, + calf tenderness with dorsiflexion of feet bilaterally), Other, Negative: Clubbing, Cyanosis Skin Exam: Positive: Warm, Dry, Negative: Rashes Neuro Exam: Positive: Normal Speech, Other (no focal neurologic deficits appreciated bilaterally) Psych Exam: Positive: Mental status NL, Mood NL, Memory Intact, Alert and oriented x 3 PALMERDORYSLUIS OGME-1 Nov 05, 2016 14:06
[2016-11-09 08:06] LABS: PROTEIN C ANTIGEN 93 % (60-150); PROTEIN S ANTIGEN FREE 69 % (57-157); PROTEIN S ANTIGEN TOTAL 147 % (60-150)
[2016-11-12 10:13] LABS: SJOGREN'S ANTI SS-A <0.2 AI (0.0-0.9); SJOGREN'S ANTI SS-B <0.2 AI (0.0-0.9)
[2016-11-13] MEDS ORDERED: APIXABAN 5 MG TAB (ELIQUIS) PO SCH (09:00)
--- NOTE | 2016-11-25 21:26 | DS.PDOC ---
Discharge Summary General Date of Admission Nov 04, 2016 at 17:39 Date of Discharge 11/06/16 Attending Physician: JAIRO GREENE DO Discharge Summary PCP: Shivam Nieves Consults: None Discharge diagnosis: Bilateral Pulmonary Emboli Secondary diagnosis: Hypothyroidism Herniated Disc in the Back Torn Cartilage R Hip/Greater Trochanteric Bursitis Insomnia Hospital course: 26 yo F presented to [facility] ED for a 1 week hx of SOB and chest tightness. States last week had an appendectomy for appendicitis. After the anesthesia wore off from the surgery, she began to have some chest tightness and SOB. Thought it was not that bad and she ignored it. Was progressively getting better. However, 1 week later, she still felt SOB and had chest tightness. Her mother who is a medical artist and her grandmother who is an RN, advised her to go to the ED to be evaluated. Patient stated that she has had a past hx of PE around 10 years ago after a L ACL meniscus repair in both lungs with a concomitant hx of using OCP and having a L leg brace on for 4 1/2 months prior to her surgery for the ACL meniscal repair. Before she could have the surgery, she states that a blood clot at the base of the L ankle shot up into the lungs during anesthesia. During admission, patient admitted to mid-chest soreness, L-sided rib pain underneath L breast, chills, lightheadedness but no dizziness, abdominal incisional site pain, a bruised abdomen in areas of her incisional sites. Denied SOB, fever, palpitations, cough, hemoptysis, nausea, vomiting, diarrhea, constipation, hematuria, hematochezia, edema, blurred vision, weakness. Was admitted for management of bilateral pulmonary emboli. CT angio showed moderate to large quantity of pulmonary emboli bilaterally including a saddle pulmonary embolus crossing the pulmonary arterial bifurcation. Emboli were seen in both upper and lower lobe pulmonary arterial branches. Vascular U/S was negative for DVT. Was placed on continuous pulse ox, but had shown no signs of desaturation throughout hospital stay. Troponins were (-) x 3. EKG done the next day had showed sinus rhythm with poor R wave progression which was new since 03/18/15. Hypercoagulable workup was ordered and is pending. We had initially begun weight-based anticoagulation with Lovenox 110 mg BID. Gave acetaminophen PRN pain control. Began eliquis 10 mg BID the next day after admission for a total anticipated therapy of 7 days. Then, instructed patient to begin eliquis 5 mg BID. This was discussed upon discharge and patient verbalized understanding. TSH was 0.675 and Free T4 was 1.89. Would recommend repeat thyroid panel in 6 weeks. Patient may be on too high a dose of levothyroxine as her TSH is being suppressed but her free T4 is high and she is in subclinical hyperthyroidism range. Other labs remained unremarkable upon discharge. In addition, patient had complained of no chest pain or SOB throughout hospital stay. Progress note on date of discharge: 11/06/16 Subjective: Patient seen and examined at bedside. Patient denied fevers, chills, blurred vision, slurred speech, headache, dizziness, chest pain, SOB, nausea, vomiting , abdominal pain, diarrhea, constipation. She did admit to some lower extremity edema that she normally has and some mild cramping in her lower extremities that she also had yesterday. Objective: Vitals: Please see below. General Exam: Pleasant female in no acute distress ENT EXAM: normocephalic, atraumatic Neck Exam: Supple Chest Exam: Clear to auscultation bilaterally Heart Exam: Regular rate and rhythm, Normal S1, S2 Abdominal Exam: Normal bowel sounds, Soft, Nondistended, Other (+Tenderness to palpation near areas of incisional sites from appendectomy. Otherwise, no peritoneal signs. Incisional sites clean/dry/intact without active drainage), Extremity Exam: Edema (mild edema in bilateral lower extremities), Normal pulses (+varicose veins noticeable in lower extremities. Breast Exam: Bilateral breast exam performed. No lymphadenopathy palpable in axilla areas bilaterally or in upper arms or breast tissue. +pea-sized palpable tender mobile mass/density located in the 5 to 6 o clock position underneath the L breast nipple in the L lower quadrant of the breast. No erythema or drainage or inverted nipple of both breasts bilaterally. Skin Exam: No other rashes or lesions noted Neuro Exam: No focal neurologic deficits appreciated bilaterally Psych Exam: Appropriate mood & affect, Memory Intact Labs: Please see below. Assessment: 26 yo F was admitted for management of bilateral pulmonary emboli. CT angio showed moderate to large quantity of pulmonary emboli bilaterally including a saddle pulmonary embolus crossing the pulmonary arterial bifurcation. Emboli are seen in both upper and lower lobe pulmonary arterial branches. Was initially begun on weight-based anticoagulation with Lovenox 110 mg BID. Was then begun on eliquis 10 mg BID today for a total anticipated therapy of 7 days , which was explained to the patient who verbalized understanding. Patient was counseled that she would then begin eliquis 5 mg BID after finishing the 7 day course of 10 mg eliquis BID. Continuous pulse ox was performed and was unremarkable for desaturations throughout hospital stay. EKG that was done showed sinus rhythm with poor R wave progression which is new since 03/18/15. Troponins have been (-) x 3. Hypercoagulable workup pending. All other labs were unremarkable. Of note, bilateral breast exam performed: no lymphadenopathy palpable in axilla areas bilaterally or in upper arms or breast tissue. +1 cm palpable mobile mass/ density located in the 5 to 6 o clock area underneath the L breast nipple in the L lower quadrant of the breast. No erythema or drainage or inverted nipple of both breasts bilaterally. Would recommend for patient to follow up with PCP regarding possible breast density/mass in the L breast and to perhaps follow this up with an ultrasound of the breast. Disposition: Medically and hemodynamically stable for discharge. Follow[facility]: [facility] in 3-5 days Activity: As tolerated Diet: Regular Medications on discharge: Eliquis 10 mg BID x 6 days first Eliquis 5 mg BID thereafter Acetaminophen 650 mg PO q4h PRN pain/fever Cc: PCP at [facility] Time spent on discharge: 35 minutes Vital Signs/I&Os Vital Signs Date Time Temp Pulse Resp B/P (MAP) Pulse Ox O2 Delivery O2 Flow Rate FiO2 11/06/16 06:00 96.7 69 18 102/53 (69) 96 Room Air I&O- Last 24 Hours up to 6 AM 11/06/16 06:00 Intake Total 2590 ml Output Total 1500 ml Balance 1090 ml Laboratory Data Labs 24H Laboratory Tests 2 11/06/16 06:35: White Blood Count 6.6, Red Blood Count 4.33, Hemoglobin 13.5, Hematocrit 39.8, Mean Corpuscular Volume 92.0, Mean Corpuscular Hemoglobin 31.3, Mean Corpuscular Hemoglobin Concent 34.0, Red Cell Distribution Width 12.6, Platelet Count 189, Neutrophils (%) (Auto) 61.4, Lymphocytes (%) (Auto) 22.8L, Monocytes (%) (Auto) 8.4H, Eosinophils (%) (Auto) 3.8H, Basophils (%) (Auto) 0.4, Neutrophils # (Auto) 4.0, Lymphocytes # (Auto) 1.5, Monocytes # (Auto) 0.6, Eosinophils # (Auto) 0.2, Basophils # (Auto) 0.0, Large Unclassified Cells % 3.3 , Large Unclassified Cells # 0.2, Anion Gap 7L, Glomerular Filtration Rate > 60.0, Blood Urea Nitrogen 15, Creatinine 0.84, Sodium Level 144, Potassium Level 4.1, Chloride Level 112H, Carbon Dioxide Level 25, Calcium Level 8.3L, Magnesium Level 2.2 CBC/BMP Laboratory Tests 11/06/16 06:35 Red Blood Count 4.33, Mean Corpuscular Volume 92.0, Mean Corpuscular Hemoglobin 31.3, Mean Corpuscular Hemoglobin Concent 34.0, Red Cell Distribution Width 12.6 , Neutrophils (%) (Auto) 61.4, Lymphocytes (%) (Auto) 22.8 L, Monocytes (%) ( Auto) 8.4 H, Eosinophils (%) (Auto) 3.8 H, Basophils (%) (Auto) 0.4, Neutrophils # (Auto) 4.0, Lymphocytes # (Auto) 1.5, Monocytes # (Auto) 0.6, Eosinophils # (Auto) 0.2, Basophils # (Auto) 0.0, Calcium Level 8.3 L Discharge Medications Scheduled (Melatonin) 3 Mg Tab, 3 MG PO QHS, (Reported) Apixaban Base (Eliquis) 5 Mg Tab, 10 MG PO BID Please take 10 mg eliquis twice daily for 6 days. Apixaban Base (Eliquis) 5 Mg Tab, 5 MG PO BID Please take 5 mg eliquis twice daily after completion of 10 mg eliquis tablets first. Fish Oil (Fish Oil) 1,000 Mg Cap, 1,000 MG PO BID, (Reported) Gabapentin (Gabapentin) 300 Mg Cap, 300 MG PO QHS, (Reported) Levothyroxine Sodium (Levoxyl) 200 Mcg Tab, 200 MCG PO DAILY, (Reported) Multivitamins *[facility] STOCKED* (Thera M Plus *[facility] STOCKED*) 1 Tab Tab, 1 TAB PO QHS , (Reported) Pantoprazole Sodium (Pantoprazole Sodium) 40 Mg Tab, 40 MG PO DAILY, (Reported) Potassium (Potassium) 99 Mg Tab, 99 MG PO DAILY, (Reported) Riboflavin (Vitamin B-2) 100 Mg Tab, 200 MG PO BID, (Reported) Tizanidine Hydrochloride (Tizanidine HCl) 4 Mg Cap, 4 MG PO QHS, (Reported) Scheduled PRN Acetaminophen (Tylenol) 325 Mg Tab, 650 MG PO Q4HP PRN for PAIN / FEVER Allergies Coded Allergies: No Known Allergies (Unverified , 07/05/14) GME ATTESTATION GME ATTESTATION My preceptor for this patient encounter was Dr. Jairo Greene, and was physically present in the building during the encounter and was fully available. As needed, all aspects of the patient interview, examination, medical decision making process, and medical care plan development were reviewed and approved by the preceptor. Preceptor is aware and concurs with the plan as stated in the body of this note and will attest to such by his/her cosignature. LUIS PALMER OGME-1 Nov 06, 2016 12:53
== END 2016-11-06 12:15 | disposition home or self-care (01) | DRG 176 ==
LOC: M ED 12:16 → M ED INP 17:39 → M ICU 11-05 07:48 → M MS5PR 11-05 22:55
PROVIDERS: ADMIT Internal Medicine; ATTEND Hospitalist
DX: I26.99 Other pulmonary embolism without acute cor pulmonale (principal); E03.9 Hypothyroidism, unspecified; G47.00 Insomnia, unspecified; M70.61 Trochanteric bursitis, right hip; M51.17 Intervertebral disc disorders with radiculopathy, lumbosacral region; Z97.5 Presence of (intrauterine) contraceptive device; Z79.01 Long term (current) use of anticoagulants; Z79.899 Other long term (current) drug therapy; Y93.9 Activity, unspecified

== ENCOUNTER → 2016-11-30 | Outpatient (CLI) | payer OTHER ==
[~2016-11-30] MED LIST changes: +ACET50TAOT PO; +ELIQ5TAB PO; +IBUPOTC PO; +MELA3TAB49 PO; +TYLE325T5 PO
--- NOTE | 2016-12-07 02:36 | ECWPNPC ---
PATIENT NAME: ERIN DESAI : 1990 GENDER: FEMALE VISIT DATE: 11/30/2016 DISCHARGE DATE: 11/30/16 1055 VISIT LOCKED DATE TIME: PHYSICIAN: REYNALDO PAREDES RESOURCE: REYNALDO PAREDES REASON FOR APPOINTMENT 1. POST TROCH BURSA HISTORY OF PRESENT ILLNESS HISTORY OF PRESENT ILLNESS: PAIN THE PATIENT DESCRIBES THE PAIN... FALL RISK SCREENING: SCREENING :NO FALLS IN THE PAST YEAR GENERAL: HERE FOR F/U.HAD RIGHT TROCHANTERIC BURSAL INJECTION ON 10-21-2016.REPORTING SIGNIFICANT IMPROVEMENT IN RIGHT LOW BACK PAIN SINCE PROCEDURE.RATING PAIN VAS 3/10.THIS IS A 50% IMPROVEMENT IN PAIN THAT CONTINUES TODAY.PAIN IS ACROSS LOW BACK AND RADIATES INTO BOTH LEGS.CHIEF AREA OF PAIN IS RIGHT HIP.HAS RESPONDED WELL TO TROCHANTERIC BURSAL INJECTION.CURRENTLY USING GABAPENTIN 300MG AT HS AND TIZANIDINE 4MG AT HS PRN.ON ELOQUIS FOR PE POST APPENDECTOMY LAST MONTH.FOLLOWING WITH MD ON POST FOR POSSIBLE HEMATOLOGIC DISEASE. CURRENT MEDICATIONS TAKING LEVOTHYROXINE SODIUM 200 MCG TABLET 1 TABLET INTRAVENOUS ONCE A DAY TAKING MULTIVITAMIN 1 TABLET CHEWABLE 1 TAB(S) ORALLY DAILY TAKING VITAMIN D (CHOLECALCIFEROL) 1000 UNIT TABLET 1 TABLET ORALLY ONCE A DAY TAKING MELATONIN 3 MG TABLET 1 TABLET AT BEDTIME NEEDED WITH FOOD ORALLY ONCE A DAY TAKING FISH OIL 1200 MG CAPSULE 1 CAPSULE ORALLY TWICE A DAY TAKING RIBOFLAVIN 25 MG TABLET 2 TABLETS ORALLY TWICE A DAY TAKING TRAMADOL HCL 50 MG TABLET 1 TAB ORALLY EVERY 6 HOURS NEEDED/MMD#4, NOTES: NONE RECENT TAKING POTASSIUM CHLORIDE 10 MEQ CAPSULE EXTENDED RELEASE 1 CAPSULE WITH FOOD ORALLY TWICE A DAY TAKING TIZANIDINE HCL 4 MG TABLET 1 TABLET NEEDED ORALLY BEFORE BEDTIME AND EVERY 6 HRS MDD2 TAKING GABAPENTIN 300 MG CAPSULE 1 ORALLY BEFORE BEDTIME TAKING ELIQUIS 5 MG TABLET 2 TABS ORALLY BID NOT-TAKING PROTONIX 40 MG TABLET DELAYED RELEASE 1 TABLET ORALLY ONCE A DAY, NOTES: 10/21 07 NOT-TAKING ASCORBIC ACID 500 MG TABLET CHEWABLE 1 TABLET ORALLY BID NOT-TAKING NAPROXEN 375 MG TABLET 1 TABLET ORALLY DAILY NEEDED NOT-TAKING ACETAMINOPHEN 500 MG TABLET 1 TABLET NEEDED ORALLY EVERY 6 HRS NOT-TAKING COMBI RX 1 1 DOSE TOPICALLY EVERY 6 HOURS NEEDED NOT-TAKING IBUPROFEN 600 MG TABLET 1 TABLET ORALLY THREE TIMES A DAY NOT-TAKING METHOCARBAMOL 750 MG TABLET 1 TABLET ORALLY EVERY 4 HRS NOT-TAKING PHENTERMINE HCL 15 MG CAPSULE 1 CAPSULE ORALLY ONCE A DAY MEDICATION LIST REVIEWED AND RECONCILED WITH THE PATIENT PAST MEDICAL HISTORY HYPOTHYROID LOW BACK PAIN RIGHT HIP PAIN 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 CONSTITUTIONAL: ANY CHANGE IN YOUR MEDICAL CONDITION? NO . CHILLS NO . FEVER NO . INFECTION: DO YOU HAVE NEW INFECTIONS? NO . DO YOU HAVE HISTORY OF MRSA? NO . MUSCULOSKELETAL: ANY NEW PATTERNS OF PAIN OR NUMBNESS? NO . GASTROENTEROLOGY: ANY NEW CHANGE IN BOWEL CONTROL? NO . GENITOURINARY: ANY NEW CHANGE IN BLADDER CONTROL? NO . IS THERE A CHANCE YOU COULD BE ? NO . HEMATOLOGY/LYMPH: DO YOU TAKE ANY BLOOD THINNERS? (FOR EXAMPLE- COUMADIN, PLAVIX, AGGRENOX, PLATEL, PRADAXA, OR XARELTO) NO . WHEN WAS YOUR LAST DOSE? DATE: TIME: . NEUROLOGY: HAVE YOU FALLEN IN THE PAST 6 MONTHS? NO . ANY NEW EXTREMITY NUMBNESS OR WEAKNESS? NO . CARDIOLOGY: DO YOU HAVE A PACEMAKER OR DEFIBRILLATOR? NO . RESPIRATORY: HAVE YOU BEEN SICK IN THE PAST WEEK? NO . FEVER NO . FLU LIKE SYMPTOMS? NO . COUGH NO . INTEGUMENTARY: DO YOU HAVE ANY RASHES OR OPEN SORES? NO . ALLERGIC/IMMUNO: ARE YOU ALLERGIC TO SHELLFISH OR IV DYE? NO . ANY NEW ALLERGIES? NO . PSYCHIATRIC: DO YOU HAVE THOUGHTS OF HURTING YOURSELF OR SOMEONE ELSE? NO . ARE YOU ABUSED, NEGLECTED, OR IN AN UNSAFE ENVIRONMENT? NO . ENDOCRINOLOGY: ARE YOU DIABETIC? NO . OTHER: DO YOU NEED ANY PRESCRIPTIONS? YES . IF YES, PLEASE LIST: GABAPENTIN, TIZANIDINE . ANY NEW PROBLEMS WITH YOUR MEDICATIONS? NO . WHEN DID YOU LAST EAT? ____ . WHEN DID YOU LAST DRINK? ____ . WHAT DID YOU LAST DRINK? ____ . NAME OF PERSON DRIVING YOU HOME? ____ . DO YOU HAVE ANY OTHER QUESTIONS OR CONCERNS NO . VITAL SIGNS WT 242 LBS, HT 69 IN, BMI 35.73 INDEX, BP 123/72 MM HG, HR 77 /MIN, RR 16 /MIN, TEMP 96.8 F, OXYGEN SAT % 96%, NA INITIALS AW 1029, REVIEWED BY: NL. EXAMINATION GENERAL EXAMINATION: GENERAL APPEARANCE:COMFORTABLE. PSYCHAFFECT NORMAL. LUNGS:LUNG RAHMAN ARE CLEAR TO AUSCULTATION BILATERALLY. GOOD MOVEMENT OF AIR. HEART:S1, S2 IN A REGULAR RATE AND RHYTHM. NO SIGNIFICANT MURMURS, RUBS OR GALLOPS NOTED. 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 CHARGE DISPOSITION & COMMUNICATION FOLLOW UP 2 MONTHS ELECTRONICALLY SIGNED BY WYATT HAQ ON 12/06/2016 AT 05:26 PM EDT DISCLAIMER : THIS IS A VISIT SUMMARY EXTRACTED FROM THE [employer] CHART. IT IS NOT A COPY OF THE [employer] PROGRESS NOTE. CADEN
== END ==
LOC: M PAIN 10:15
PROVIDERS: ATTEND Nurse Practitioner Family
DX: M25.551 Pain in right hip (principal); M54.41 Lumbago with sciatica, right side; Z79.891 Long term (current) use of opiate analgesic; Z79.899 Other long term (current) drug therapy

== ENCOUNTER → 2017-01-31 | Outpatient (CLI) | payer OTHER | LOC: M PAIN 09:45 | PROVIDERS: ATTEND Nurse Practitioner Family | DX: G89.29 Other chronic pain (principal); M25.551 Pain in right hip; M54.41 Lumbago with sciatica, right side; E03.9 Hypothyroidism, unspecified; Z87.820 Personal history of traumatic brain injury; Z87.891 Personal history of nicotine dependence; Z79.01 Long term (current) use of anticoagulants; Z79.899 Other long term (current) drug therapy ==

== ENCOUNTER → 2017-04-04 | Outpatient (CLI) | payer OTHER | LOC: M PAIN 10:00 | DX: M25.551 Pain in right hip (principal); M54.41 Lumbago with sciatica, right side; E03.9 Hypothyroidism, unspecified; Z79.01 Long term (current) use of anticoagulants; Z79.899 Other long term (current) drug therapy; Z86.79 Personal history of other diseases of the circulatory system; Z87.891 Personal history of nicotine dependence | CPT/HCPCS: G0463 ==